=== PATIENT | female | born 1935 | race Caucasian/White ===

== ENCOUNTER 2019-12-12 06:19 | Inpatient (IN) | payer MEDICARE, OTHER ==
[2019-12-12] MEDS ORDERED: MORPHINE SULFATE 4 MG/ML SYRINGE IVP STA (06:31)
--- NOTE | 2019-12-12 06:38 | ED ---
Fall HPI - General Chief Complaint: Fall Stated Complaint: Fall Time Seen by Provider: 12/12/19 06:23 Source: patient Mode of arrival: EMS - History of Present Illness Initial Comments: Patient is an 84-year-old female presenting to emergency Department via EMS after a fall. Patient states she lost her footing and fell in her bathroom this morning. Patient states she hit her face on the sink and then landed mostly on her left side. Patient is complaining about left hip and left shoulder pain as well as some pain in her head where she hit the sink. She rates her pain a 7 /10. Patient denies loss of consciousness. She denies nausea, vomiting, dizziness, chest pain, shortness of breath. She denies any abdominal pain. She denies any previous surgeries of her hips or knees. She has no other complaints at this time. - Related Data Allergies Allergy/AdvReac Type Severity Reaction Status Date / Time No Known Allergies Allergy Verified 12/12/19 06:31 Review of Systems ROS Statement: Those systems with pertinent positive or pertinent negative responses have been documented in the HPI. ROS Other: All systems not noted in ROS Statement are negative. Past Medical History History of Any Multi-Drug Resistant Organisms: None Reported Past Psychological History: No Psychological Hx Reported Smoking Status: Never smoker Past Alcohol Use History: None Reported Past Drug Use History: None Reported General Exam - General Exam Comments Initial Comments: GENERAL: Well-appearing, well-nourished and in no acute distress. HEAD: Patient has bruising on the left temporal area as well as the left jaw. No s igns of basal skull fracture. EYES: Pupils equal round and reactive to light, extraocular movements intact, sclera anicteric, conjunctiva are normal. ENT: TMs normal, nares patent, oropharynx clear without exudates. Moist mucous membranes. NECK: Normal range of motion, supple without lymphadenopathy or JVD. No midline tenderness. LUNGS: Breath sounds clear to auscultation bilaterally and equal. No wheezes rales or rhonchi. HEART: Regular rate and rhythm without murmurs, rubs or gallops. ABDOMEN: Soft, nontender, normoactive bowel sounds. No guarding, no rebound. No masses appreciated. : Deferred EXTREMITIES: Pain with palpation of the left hip and left femur. Left lower extremity is shortened and externally rotated. Left lower extremity is neurovascular intact. Patient also has pain in the left shoulder as well as limited range of motion. Left upper extremity is neurovascular intact. No clubbing or cyanosis. NEUROLOGICAL: Cranial nerves II through XII grossly intact. Normal speech. PSYCH: Normal mood, normal affect. SKIN: Warm, Dry, normal turgor, no rashes or lesions noted. Course Vital Signs 12/12/19 12/12/19 06:23 08:03 Temperature 97.6 F Pulse Rate 63 84 Respiratory 18 18 Rate Blood Pressure 124/77 131/73 O2 Sat by Pulse 97 96 Oximetry Medical Decision Making - Medical Decision Making Patient is an 84-year-old female here after a fall this morning. Patient has bruising on the left temporal area, left lower extremity is shortened and externally rotated, and left shoulder is painful and limited range of motion. X-rays of the left femur reveal a left intertrochanteric fracture. AP pelvis also reveals a buckle fracture of the right superior pubic symphysis. Left shoulder x-ray is questionable for a impacted humerus fracture vs. shoulder contusion. CT of the brain, C-spine, facial bones revealed no acute abnormalities. Patient was placed in a sling. Patient did receive pain medicine and she is comfortable at this time. Patient will be admitted to orthopedics and medicine. Patient was accepted by Dr. Burkett and Dr. Gant. Case discussed with Dr. Albert. Lab work is pending at this time. - Lab Data Result diagrams: 12/12/19 08:00 12/12/19 08:00 Lab Results 12/12/19 12/12/19 12/12/19 Range/Units 08:00 08:00 08:00 WBC 24.4 H (3.8-10.6) k/uL RBC 4.57 (3.80-5.40) m/uL Hgb 13.7 (11.4-16.0) gm/dL Hct 42.9 (34.0-46.0) % MCV 94.0 (80.0-100.0) fL MCH 30.1 (25.0-35.0) pg MCHC 32.0 (31.0-37.0) g/dL RDW 14.2 (11.5-15.5) % Plt Count 140 L (150-450) k/uL PT 10.9 (9.0-12.0) sec INR 1.1 (<1.2) APTT 22.8 (22.0-30.0) sec Sodium 133 L (137-145) mmol/L Potassium 4.7 (3.5-5.1) mmol/L Chloride 103 (98-107) mmol/L Carbon Dioxide 24 (22-30) mmol/L Anion Gap 6 mmol/L BUN 15 (7-17) mg/dL Creatinine 0.76 (0.52-1.04) mg/dL Est GFR (CKD-EPI)AfAm 83 (>60 ml/min/1.73 sqM) Est GFR (CKD-EPI)NonAf 72 (>60 ml/min/1.73 sqM) Glucose 108 H (74-99) mg/dL Calcium 8.6 (8.4-10.2) mg/dL - EKG Data EKG Comments: EKG shows sinus rhythm with premature supraventricular complexes, no other acute changes. Ventricular rate 82, ME interval 146, QTC 453. Disposition Clinical Impression: Fall, Fracture, intertrochanteric, left femur, Contusion of face, Contusion of left shoulder, Closed fracture of symphysis pubis Disposition: ADMITTED IP TO THIS [facility] Condition: Good Is patient prescribed a controlled substance at d/c from ED?: No Referrals: None,Stated [REFERRING] - 1-2 days Decision Date: 12/12/19 Decision Time: 07:40
--- NOTE | 2019-12-12 07:07 | CT ---
EXAMINATION TYPE: CT brain mohsen sanchez DATE OF EXAM: 12/12/2019 COMPARISON: None HISTORY: Fall CT DLP: 988.3 mGycm Automated exposure control for dose reduction was used. There is cerebral cortical atrophy. There is no mass effect nor midline shift. There is no sign of in tracranial hemorrhage. There is hypodensity in the periventricular white matter. The calvarium is int act. Cervical vertebra have normal alignment. Posterior elements are intact. Facet joints are intact. The skull base is intact. There is mild cervical disc space narrowing. IMPRESSION: Cerebral atrophy. Chronic small vessel ischemia. No acute intracranial abnormality. Negative CT scan of the cervical spine. No fracture. There is multiple compression fractures of the upper thoracic vertebra up to 50% with thoracic kyphot ic deformity. Fractures are probably old.
--- NOTE | 2019-12-12 07:09 | CT ---
EXAMINATION TYPE: CT facial bones wo con DATE OF EXAM: 12/12/2019 COMPARISON: None HISTORY: Fall CT DLP: 988.3 mGycm Automated exposure control for dose reduction was used. Multiple axial sections were obtained from the bottom of the mandible to the top of the frontal sinus es without contrast. Exam limited slightly by motion. The mandibular ring is intact. Temporomandibula r joints appear intact. Zygomatic arches appear normal. Maxilla appears intact. The nasal bone is int act. There is no evidence of a blowout fracture. There is no evidence of retro-orbital mass. There is normal aeration of the paranasal sinuses. There is normal aeration of the temporal bones. IMPRESSION: Exam limited slightly by motion. No fracture seen.
--- NOTE | 2019-12-12 07:35 | XR ---
EXAMINATION TYPE: XR femur LT DATE OF EXAM: 12/12/2019 COMPARISON: None HISTORY: Fall, pain TECHNIQUE: 2 view right femur FINDINGS: There is an intertrochanteric fracture at the left hip. There is avulsion of the lesser tro chanter. There is some angulation of the fracture fragments. Knee joint space appears preserved. Femoral head articulates with the acetabulum. IMPRESSION: 1. Intertrochanteric fracture left hip
[2019-12-12] MEDS ORDERED: traMADol 50 MG TAB PO PRN (07:37)
[2019-12-12] MEDS ORDERED: NALOXONE 0.4 MG/ML 1 ML VIAL IV PRN (07:37)
[2019-12-12] MEDS ORDERED: ONDANSETRON 4 MG/2 ML VIAL IVP PRN (07:37)
[2019-12-12] MEDS ORDERED: ACETAMINOPHEN TAB 325 MG TAB PO PRN (07:37)
--- NOTE | 2019-12-12 07:59 | XR ---
EXAMINATION TYPE: XR shoulder complete LT DATE OF EXAM: 12/12/2019 COMPARISON: None HISTORY: Fall, pain TECHNIQUE: Three-view left shoulder FINDINGS: Humeral head articulate with the glenoid. The acromioclavicular junction appears within nor mal limits. Prior distal clavicular fracture may be present. Correlate with location of the patient's pain. There may be some calcium pyrophosphate deposition calcification present within the joint spac e. Free bodies could be considered. Osteoarthritic degenerative changes at the glenohumeral junction. IMPRESSION: 1. Moderately advanced degenerative changes left shoulder. 2. There may be an old fracture of the distal clavicle. Clinical correlation with location of the pat ient's pain is recommended.
--- NOTE | 2019-12-12 08:01 | XR ---
EXAMINATION TYPE: XR Hip LT and AP Pelvis DATE OF EXAM: 12/12/2019 COMPARISON: Left femur HISTORY: Fall, pain TECHNIQUE: 2 view left hip supplemented with an AP pelvis FINDINGS: There is an intertrochanteric fracture of the left hip. There is avulsion of the lesser tro chanter. Femoral head articulates with the acetabulum. There is a fracture of the right medial pubic symphysis. Right femoral head articulates with the ac etabulum. No additional fractures are identified IMPRESSION: 1. Intertrochanteric fracture left hip with avulsion of the lesser trochanter. 2. Buckle fracture of the right superior pubic symphysis.
--- NOTE | 2019-12-12 08:09 | XR ---
EXAMINATION TYPE: XR chest 1V DATE OF EXAM: 12/12/2019 COMPARISON: None INDICATION: Hip fracture, fall, pain TECHNIQUE: Single frontal view of the chest is obtained. FINDINGS: The heart size is normal. The pulmonary vasculature is normal. There appears to be some atelectasis at the right lung base. There is elevation of the right diaphragm. Degenerative changes are noted at the bilateral shoulders. No definite acute fracture of the distal left clavicle is identified. IMPRESSION: 1. Mild atelectasis right lung base and elevation of the right diaphragm
[2019-12-12 08:22] LABS: Calcium 8.6 mg/dL (8.4-10.2)
[2019-12-12 08:24] LABS: INR 1.1 (<1.2); Partial Thromboplastin Time 22.8 sec (22.0-30.0); Prothrombin Time 10.9 sec (9.0-12.0)
[2019-12-12 08:33] LABS: Potassium 4.7 mmol/L (3.5-5.1)
[2019-12-12 08:48] LABS: HCT 42.9 % (34.0-46.0); HGB 13.7 gm/dL (11.4-16.0); MCH 30.1 pg (25.0-35.0); Platelet Count 140 k/uL (150-450); RBC 4.57 m/uL (3.80-5.40); RDW 14.2 % (11.5-15.5); WBC 24.4 k/uL (3.8-10.6)
[2019-12-12 09:11] LABS: Band Neutrophils % 4 %; Eosinophils # (M) 0.49 k/uL (0-0.7); Lymphocytes # (M) 0.73 k/uL (1.0-4.8); Metamyelocytes # (M) 0.24 k/uL (0); Metamyelocytes % 1 %; Monocytes # (M) 3.66 k/uL (0-1.0); Neutrophils % (M) 77 %; Nucleated Red Blood Cells 0 /100 WBC (0-0); Total Cells Counted 200
[2019-12-12 09:12] LABS: Large Platelets Present
[2019-12-12] MEDS: SODIUM CHLORIDE 0.9% 1,000 ML IV SCH (09:47)
--- NOTE | 2019-12-12 11:13 | P.CONS ---
History of Present Illness - Reason for Consult Consult date: 12/12/19 Medical management - History of Present Illness This is an 84-year-old female patient of Dr. Bean with past medical history of generalized osteoarthritis, osteoporosis, anemia, chronic hypokalemia, hypothyroidism, frequent urinary tract infections, diverticulitis, dementia. Patient has been seen in the office on multiple occasions recently with general problems including weight loss. Patient refused [id number]. senior care placement was being worked on between [facility] or [facility]. The patient has a sister that lives in the apartment across the [place] from her and has been assisting her. Yesterday, patient had a fall after losing her balance, fell in the bathroom and hit her face on the sink and landed on her left side. She is complaining of left hip and left shoulder pain as well as head pain. Patient denies any loss of consciousness. No nausea, vomiting, dizziness, chest pain, shortness of breath. She denies any abdominal pain. She was afebrile and vital signs were stable, WBC 24.4, hemoglobin 13.7, platelets 140, sodium 133, potassium 4.7, chloride 103, CO2 24, BUN 15, creatinine 0.76, blood sugar 108. CAT scan of the brain, cervical spine, facial bones showed no acute abnorma lities. Left shoulder x-ray showed moderately advanced degenerative changes of the left shoulder. There may be an old fracture of the distal clavicle. Right hip and pelvis showed intertrochanteric fracture left hip with avulsion of the lesser trochanter. Buccal fracture of the right superior pubic symphysis. Patient was placed on a sling and admitted to the [facility] floor under orthopedics. Review of Systems Constitutional: Reports weight loss, Denies anorexia, Denies chills, Denies fatigue, Denies fever, Denies lethargy, Denies malaise, Denies poor appetite, Denies weakness Eyes: denies blurred vision, denies pain Ears, nose, mouth and throat: Denies dental pain, Denies dysphagia, Denies headache, Denies mouth pain, Denies nasal congestion, Denies nasal discharge, Denies sore throat, Denies vertigo Cardiovascular: Denies chest pain, Denies dyspnea on exertion, Denies edema, Denies irregular heart beat, Denies leg edema, Denies lightheadedness, Denies shortness of breath, Denies syncope Respiratory: Denies cough, Denies cough with sputum, Denies dyspnea, Denies excessive sputum, Denies hemoptysis, Denies home oxygen, Denies respiratory infections, Denies wheezing Gastrointestinal: Denies abdominal pain, Denies diarrhea, Denies nausea, Denies vomiting Genitourinary: Denies dysuria, Denies hematuria, Denies urgency, Denies urinary frequency Menstruation: Reports postmenopausal Musculoskeletal: Reports gait dysfunction, Reports muscle weakness, Denies frequent falls, Denies myalgias Integumentary: Denies pruritus, Denies rash, Denies wounds Neurological: Reports weakness, Denies change in mentation, Denies change in speech, Denies numbness, Denies seizures Psychiatric: Denies anxiety, Denies depression Endocrine: Denies fatigue, Denies weight change Past Medical History Past Medical History: No Reported History, Osteoarthritis (OA), Thyroid Disorder History of Any Multi-Drug Resistant Organisms: None Reported Past Surgical History: No Surgical Hx Reported Past Psychological History: No Psychological Hx Reported Smoking Status: Never smoker Past Alcohol Use History: None Reported Additional Past Alcohol Use History / Comment(s): Patient is a lifelong nonsmoker, no alcohol use, marijuana use, illicit drug use. Patient currently resides in a senior apartment. Patient's sister lives across the [place]. Past Drug Use History: None Reported - Past Family History Father Additional Family Medical History / Comment(s): Father at age 97 from old age but did have history of several types of cancer. Patient cannot recall. Mother Additional Family Medical History / Comment(s): Mother at age 88 from coronary artery disease. Patient has one sister. Patient does not have any brothers. Patient has 2 children that she has not seen since a divorce many years ago. Medications and Allergies Home Medications Medication Instructions Recorded Confirmed Type Ascorbic Acid [Vitamin C] 500 mg PO DAILY 12/12/19 12/12/19 History Cholecalciferol [Vitamin D3 (25 2,000 unit PO DAILY 12/12/19 12/12/19 History Mcg = 1000 Iu)] Mirtazapine [Remeron] 15 mg PO HS 12/12/19 12/12/19 History Potassium Chloride [Klor-Con 20] 20 meq PO DAILY 12/12/19 12/12/19 History Rivastigmine Tartrate 1.5 mg PO BID-W/MEALS 12/12/19 12/12/19 History [Rivastigmine] Allergies Allergy/AdvReac Type Severity Reaction Status Date / Time No Known Allergies Allergy Verified 12/12/19 10:01 Physical Exam Vitals: Vital Signs Temp Pulse Pulse Resp BP BP Pulse Ox 12/12/19 10:01 98.6 F 95 20 107/62 92 L 12/12/19 08:03 84 18 131/73 96 12/12/19 06:23 97.6 F 63 18 124/77 97 Intake and Output 12/11/19 12/12/19 12/12/19 22:59 06:59 14:59 Other: Weight 43.091 kg 43.091 kg Gen: This is an 84-year-old female. Patient is very cachectic appearing. HEENT: Head is atraumatic, normocephalic. Pupils equal, round. Sclerae is anicteric. NECK: Supple. No JVD. No lymphadenopathy. No thyromegaly. LUNGS: Clear to auscultation. No wheezes or rhonchi. No intercostal retractions. HEART: Regular rate and rhythm. No murmur. ABDOMEN: Soft. Bowel sounds are present. No masses. No tenderness. EXTREMITIES: No pedal edema. No calf tenderness. Left lower extremity is externally rotated and shortened. NEUROLOGICAL: Patient is awake, alert and oriented x3. Cranial nerves 2 through 12 are grossly intact. Results CBC & Chem 7: 12/13/19 10:57 12/13/19 10:57 Labs: Abnormal Lab Results - Last 24 Hours (Table) 12/12/19 12/12/19 Range/Units 08:00 08:00 WBC 24.4 H (3.8-10.6) k/uL Plt Count 140 L (150-450) k/uL Neutrophils # (Manual) 19.70 H (1.3-7.7) k/uL Lymphocytes # (Manual) 0.73 L (1.0-4.8) k/uL Monocytes # (Manual) 3.66 H (0-1.0) k/uL Metamyelocytes # (Man) 0.24 H (0) k/uL Sodium 133 L (137-145) mmol/L Glucose 108 H (74-99) mg/dL Assessment and Plan Plan: 1. Left intertrochanteric hip fracture with avulsion of the lesser trochanter. Patient has been admitted under the care of orthopedic surgeon. Patient is cleared medically for surgical intervention. Continue current pain management, incentive spirometry to reduce incidence of atelectasis and hospital-acquired pneumonia. 2. Right pubic symphysis fracture. Continue conservative management. 3. Leukocytosis most likely reactionary from the hip fracture. Obtain urinal ysis and urine culture 4. Weight loss and severe protein calorie malnutrition. Continue Remeron 50 mg at bedtime, protein supplementation. 5. 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 Continue rivastigmine 1.5 mg twice daily. 6. Hypokalemia. Continue potassium supplementation. 7. Generalized osteoarthritis and osteoporosis. 8. GI prophylaxis. Pepcid. 9. DVT prophylaxis. Per orthopedic. 10. COVID-19 testing is in process. Patient will be admitted to the hospital for a minimum of 2 night stay. Discharge plan: [facility] or [facility] for subacute rehab. Impression and plan of care have been directed as dictated by the signing physician. Zunilda Magana nurse practitioner acting as scribe for signing physician.
--- NOTE | 2019-12-12 11:29 | P.HPOR ---
History of Present Illness H&P Date: 12/12/19 Chief Complaint: left hip pain, left shoulder pain, and pubic bone pain Patient is a very pleasant 84-year-old female who is seen sitting at the bedside for further evaluation regards to her left hip pain, left shoulder pain, and pubic pain. Patient states her this morning she got up to go to the restroom. She states she is unsure what caused her fall but she fell hitting the left side of her head on the sink and falling on her left side. She resides with her sister. She states her sister was able to help get her brought to [facility] for further evaluation. Patient states she has difficulty with any range of motion of the left lower extremity. She has pain with movements of her left hip. She also complains of some pain over her pubic bone. She has difficulty with range of motion of the left shoulder and states her left shoulder feels sore. She does have some pain over the left proximal humerus. Her pain is significant at her left hip. She does have bruising over the left sabianism and over her left cheek. Patient had multiple imaging modalities taken in the emergency department which show evidence of left intertrochanteric hip fracture and possible left proximal humerus fracture. A sling was ordered for the left upper extremity in the emergency department. Patient is not currently complaining of any cervical pain, thoracic pain, or pain to her skull. She states overall she feels sore. She states she does not have any medical conditions that she is aware of. Nursing states patient has been seen by Dr. Charles in medicine today. Past Medical History Past Medical History: No Reported History, Osteoarthritis (OA), Thyroid Disorder History of Any Multi-Drug Resistant Organisms: None Reported Past Surgical History: No Surgical Hx Reported Past Psychological History: No Psychological Hx Reported Smoking Status: Never smoker Past Alcohol Use History: None Reported Additional Past Alcohol Use History / Comment(s): Patient is a lifelong nonsmoker, no alcohol use, marijuana use, illicit drug use. Patient currently resides in a senior apartment. Patient's sister lives [place] the [place]. Past Drug Use History: None Reported - Past Family History Father Additional Family Medical History / Comment(s): Father at age 97 from old age but did have history of several types of cancer. Patient cannot recall. Mother Additional Family Medical History / Comment(s): Mother at age 88 from coron melissa artery disease. Patient has one sister. Patient does not have any brothers. Patient has 2 children that she has not seen since a divorce many years ago. Medications and Allergies Home Medications Medication Instructions Recorded Confirmed Type Ascorbic Acid [Vitamin C] 500 mg PO DAILY 12/12/19 12/12/19 History Cholecalciferol [Vitamin D3 (25 2,000 unit PO DAILY 12/12/19 12/12/19 History Mcg = 1000 Iu)] Mirtazapine [Remeron] 15 mg PO HS 12/12/19 12/12/19 History Potassium Chloride [Klor-Con 20] 20 meq PO DAILY 12/12/19 12/12/19 History Rivastigmine Tartrate 1.5 mg PO BID-W/MEALS 12/12/19 12/12/19 History [Rivastigmine] Allergies Allergy/AdvReac Type Severity Reaction Status Date / Time No Known Allergies Allergy Verified 12/12/19 10:01 Physical Examination Physical exam: Patient is awake, alert, and oriented 3 Vital signs stable Adequate chest excursion with deep inspiration and expiration Left lower extremity is shortened and externally rotated Pain with palpation of the left hip Significant pain with internal and external rotation of the left hip Neurovascularly intact bilateral lower extremities Dorsiflexion, plantarflexion, and extensor hallucis longus positive sustained bilaterally Calves are soft and supple; No signs or symptoms of DVT; No calf pain Pain with palpation over the left proximal humerus Limited range of motion of the left shoulder Active range of motion with flexion and extension of the left elbow without difficulty Patient able to wiggle all fingers of the left hand without difficulty No evidence of significant bruising, erythema, or swelling over the left shoulder Contusions over the left sabianism and cheek Results Pertinent studies: X-rays of the left hip and pelvis taken on 12/12/2019: Left intertrochanteric hip fracture with avulsion of the lesser trochanter; buckle fracture of the right superior pubic symphysis X-rays the left shoulder taken on 12/12/2019: Moderately advanced degenerative changes of the left shoulder; may be evidence of an old fracture of the distal clavicle and possible proximal humerus fracture X-ray left femur taken on 12/12/2019: Left intertrochanteric hip fracture with avulsion of the lesser trochanter; some angulation of the fracture fragment; the joint space appears preserved CT of the head and cervical spine taken on 12/12/2019: Negative computed tomography scan of the cervical spine; no evidence of cervical fracture; cerebral atrophy, chronic small vessel ischemia; no acute intracranial abnormality; multiple upper thoracic compression fracture deformities with thoracic kyphotic deformity which these fractures are probably chronic CT of the face taken on 12/12/2019: Exam limited surgery by motion; no fracture seen - Labs Labs: Abnormal Lab Results - Last 24 Hours (Table) 12/12/19 12/12/19 Range/Units 08:00 08:00 WBC 24.4 H (3.8-10.6) k/uL Plt Count 140 L (150-450) k/uL Neutrophils # (Manual) 19.70 H (1.3-7.7) k/uL Lymphocytes # (Manual) 0.73 L (1.0-4.8) k/uL Monocytes # (Manual) 3.66 H (0-1.0) k/uL Metamyelocytes # (Man) 0.24 H (0) k/uL Sodium 133 L (137-145) mmol/L Glucose 108 H (74-99) mg/dL H & H 12/12/19 Range/Units 08:00 Hgb 13.7 (11.4-16.0) gm/dL Hct 42.9 (34.0-46.0) % Coagulation 12/12/19 Range/Units 08:00 INR 1.1 (<1.2) Result Diagrams: 12/12/19 08:00 12/12/19 08:00 Assessment and Plan Assessment: Assessment: Acute traumatic intertrochanteric hip fracture status post fall with the lesser trochanter avulsion fracture Left hip pain Left proximal humerus shoulder pain Right superior pubic symphysis buckle fracture Pubic bone pain Contusion over the left cheek and left sabianism (1) Left shoulder pain Current Visit: Yes Status: Acute Code(s): M25.512 - PAIN IN LEFT SHOULDER SNOMED Code(s): 59290094 (2) Degenerative arthritis of left shoulder region Current Visit: Yes Status: Acute Code(s): M19.012 - PRIMARY OSTEOARTHRITIS, LEFT SHOULDER SNOMED Code(s): 898256208215342 (3) Left hip pain Current Visit: Yes Status: Acute Code(s): M25.552 - PAIN IN LEFT HIP SNOMED Code(s): 26944283 (4) Closed fracture of symphysis pubis Current Visit: Yes Status: Acute Code(s): S32.599A - OTH FRACTURE OF UNSP PUBIS, INIT ENCNTR FOR CLOSED FRACTURE SNOMED Code(s): 816122623 (5) Contusion of face Current Visit: Yes Status: Acute Code(s): S00.83XA - CONTUSION OF OTHER PART OF HEAD, INITIAL ENCOUNTER SNOMED Code(s): 580119852 (6) Fall Current Visit: Yes Status: Acute Code(s): W19.XXXA - UNSPECIFIED FALL, INITIAL ENCOUNTER SNOMED Code(s): 4419699 (7) Fracture, intertrochanteric, left femur Current Visit: Yes Status: Acute Code(s): S72.142A - DISPLACED INTERTROCHANTERIC FRACTURE OF LEFT FEMUR, INIT SNOMED Code(s): 197677681 Plan: Plan: 1. Patient has been discussed in detail with Dr. Burkett. Reviewing of imaging does show evidence of a left intertrochanteric hip fracture. Patient has been unable to ambulate on the left lower extremity following her fall. She has pain most significant in her left hip. We discussed the significance of her fracture and that surgical intervention would provide her with the best opportunity have some improvement of her mobility and to increase her ambulation status. After further discussion with the patient, patient elected to proceed for surgical intervention at her left hip. I discussed these issues with the patient at length and I answered all of their questions to the best of my ability and the patient understands. I discussed the risk of surgical intervention and alternative treatment options. The risk of surgical intervention was explained to the patient in detail including but not limited to risk of bleeding, risk of infection, risk and need for further surgery, risk of decreased loss of motion of function, malunion, nonunion, hardware failure, nerve damage, paralysis, heart attack, , as well as the fact that surgery may not alleviate her symptoms. I answered all the patient's questions the best of my ability. The patient would like to proceed forward with surgical intervention and will sign informed consent. Surgery will be planned for tomorrow, 12/13/2019 to be performed by Dr. Burkett. Patient may eat throughout the day and become nothing by mouth status starting at midnight, 12/13/2019. Patient has been seen by medicine. Patient will need to be cleared by medicine prior to surgical intervention. 2. Patient is also exposing pain over the left proximal humerus and has had increased pain at the left proximal humerus after her fall. She does have decreased range of motion with the left shoulder. X-ray imaging was inconclusive in terms of whether there was evidence of a fracture of the left shoulder. At this time, we will plan to obtain a CT of the left shoulder for further evaluation. She has been provided with a sling for the left upper extremity. A sling was ordered in the emergency department but has not yet been delivered to the room. Once this sling is delivered, patient should use the sling for comfort support. She should avoid lifting activities with the left upper extremity. 3. Roland catheter initiation has been started. 4. Continue pain control medication as prescribed 5. Patient will continue recently examined by medicine and will need surgical clearance prior to scheduled surgery at her left hip tomorrow, 12/13/2019 Time with Patient: Greater than 30 (Including obtaining history, physical examination, reviewing of imaging, and dictation.)
[2019-12-12] MEDS: DONEPEZIL 5 MG TAB PO SCH (13:45)
--- NOTE | 2019-12-12 13:46 | CT ---
EXAMINATION TYPE: CT humerus LT wo con DATE OF EXAM: 12/12/2019 COMPARISON: None HISTORY: Left shoulder pain status post fall, R/O Fracture CT DLP: [address] of the left shoulder with reconstruction imaging. TECHNIQUE: Unenhanced CT of the left shoulder was performed with bone and soft tissue window settings submitted in the axial coronal and sagittal planes. At a separate workstation 3-D TR imaging was ob tained. FINDINGS: I do not see evidence for fracture or dislocation of the humerus. There is fracture of the distal left clavicle without significant displacement mild narrowing AC joint space. Severe glenohume ral joint space narrowing. Spur formation about the humeral head. No obvious rotator cuff abnormality seen on CT. MRI is much more sensitive and specific to rotator cuff pathology. No soft tissue mass es appreciated. Visualized portions of the right lung demonstrate apical scarring. Remote left-reilly ed rib fractures. IMPRESSION: 1. Nondisplaced distal left clavicular fracture. 2. Changes of osteoarthritis.
[2019-12-12 14:30] LABS: Appearance,Urine Clear (Clear); Bilirubin,Urine Negative (Negative); Blood,Urine Negative (Negative); Color,Urine Yellow; Glucose,Urine (UA) Negative (Negative); Ketones,Urine Negative (Negative); Leukocyte Esterase,Urine Negative (Negative); Nitrite,Urine Negative (Negative); Protein,Urine Negative (Negative); Specific Gravity,Urine 1.011 (1.001-1.035); Urobilinogen,Urine <2.0 mg/dL (<2.0)
[2019-12-12] MEDS: MIRTAZAPINE 15 MG TAB PO SCH (22:10)
--- NOTE | 2019-12-12 23:28 | CONS ---
CONSULTATION CHIEF COMPLAINT: Left hip fracture. HISTORY OF PRESENT ILLNESS: I was called to evaluate this lady for preop consult for ORIF of fracture of the left hip. There is nobody accompanying her to give any history. REVIEW OF SYSTEMS: Unobtainable. Past medical history, family history, and personal and social histories are unobtainable at this time. PHYSICAL EXAMINATION: Blood pressure is 112/70 with a pulse of 70, respirations of 12. She is afebrile. In general, she appeared to be slightly pale, frail and very dehydrated. Head, ears, eyes, nose, mouth, and throat were normal except for dry lips and mucous membranes. Neck veins are not distended. Carotids sounded normal. Breath sounds are heard on both sides. Cardiac exam demonstrated what sounded like sinus rhythm with no murmurs or extra sounds. Abdomen is flat, soft. Extremities demonstrated external rotation of the left leg. Pulses in the extremities were weak. Neurologically, she was awake, but not felt to be appropriate. IMPRESSION: 1. Fracture of the left hip. 2. Dehydration. PLAN: IV fluids, laboratory studies in preparation for surgical intervention. MMODL / IJN: [id number] /
[2019-12-13] MEDS: SODIUM CHLORIDE 0.9% 1,000 ML IV SCH ×2 (05:48→21:15)
[2019-12-13] MEDS: FAMOTIDINE 20 MG TAB PO SCH (06:47)
[2019-12-13] MEDS: POTASSIUM CHLORIDE ER 20 MEQ TAB.ER PO SCH (06:47)
[2019-12-13] MEDS: DONEPEZIL 5 MG TAB PO SCH (06:47)
[2019-12-13] MEDS ORDERED: LIDOCAINE 1% (10MG/ML) FOR IV START INTRADERMA PRN (09:54)
[2019-12-13] MEDS ORDERED: DEXAMETHASONE SOD PHOSPHATE 10 MG/ML 1 ML VIAL IV ONE (09:54)
[2019-12-13] MEDS ORDERED: HYDROmorphone 0.5 MG/0.5 ML SYRINGE IVP PRN ×4 (09:54→16:39)
[2019-12-13 09:55] VITALS: BMI 16.2
[2019-12-13 11:33] LABS: Basophils # (A) 0.1 k/uL (0-0.2); Basophils % (A) 1 %; Eosinophils # (A) 0.1 k/uL (0-0.7); Eosinophils % (A) 1 %; HCT 35.9 % (34.0-46.0); HGB 11.4 gm/dL (11.4-16.0); Hypochromasia Slight; Lymphocytes # (A) 1.1 k/uL (1.0-4.8); Lymphocytes % (A) 5 %; MCH 29.9 pg (25.0-35.0); MCHC 31.8 g/dL (31.0-37.0); MCV 94.2 fL (80.0-100.0); Monocytes # (A) 4.4 k/uL (0-1.0); Monocytes % (A) 22 %; Neutrophils # (A) 13.7 k/uL (1.3-7.7); Neutrophils % (A) 70 %; Platelet Count 155 k/uL (150-450); RBC 3.81 m/uL (3.80-5.40); RDW 14.4 % (11.5-15.5); WBC 19.7 k/uL (3.8-10.6)
[2019-12-13 11:48] LABS: Albumin 3.1 g/dL (3.5-5.0); C Reactive Protein 84.1 mg/L (<10.0); Calcium 8.4 mg/dL (8.4-10.2); Potassium 5.2 mmol/L (3.5-5.1); Total Bilirubin 0.5 mg/dL (0.2-1.3); Total Protein 5.8 g/dL (6.3-8.2)
--- NOTE | 2019-12-13 11:57 | P.PN ---
Subjective Progress Note Date: 12/13/19 This is an 84-year-old female patient of Dr. Bean with past medical history of generalized osteoarthritis, osteoporosis, anemia, chronic hypokalemia, hypothyroidism, frequent urinary tract infections, diverticulitis, dementia. Patient has been seen in the office on multiple occasions recently with general problems including weight loss. Patient refused [id number]. residential placement was being worked on between [facility] or [facility]. The patient has a sister that lives in the apartment across the [place] from her and has been assisting her. Yesterday, patient had a fall after losing her balance, fell in the bathroom and hit her face on the sink and landed on her left side. She is complaining of left hip and left shoulder pain as well as head pain. Patient denies any loss of consciousness. No nausea, vomiting, dizziness, chest pain, shortness of breath. She denies any abdominal pain. She was afebrile and vital signs were stable, WBC 24.4, hemoglobin 13.7, platelets 140, sodium 133, potassium 4.7, chloride 103, CO2 24, BUN 15, creatinine 0.76, blood sugar 108. CAT scan of the brain, cervical spine, facial bones showed no acute abnormalities. Left shoulder x-ray showed moderately advanced degenerative changes of the left shoulder. There may be an old fracture of the distal clavicle. Right hip and pelvis showed intertrochanteric fracture left hip with avulsion of the lesser trochanter. Buccal fracture of the right superior pubic symphysis. Patient was placed on a sling and admitted to the [facility] floor under orthopedics. 12/12: Received call this morning from patient's nurse the patient was positive for COVID-19. Consult added for Dr. Colmenares. Orthopedics has been notified. Patient denies any new complaints. Appears to be still slightly more weak today from yesterday. She has been afebrile, heart rate 98, blood pressure 131/70, pulse ox 95% on room air. D-dimer 1.48. Sodium 133, potassium 5.2, chloride 104, CO2 19, BUN 32, creatinine 1.4, blood sugar 112. LDH 678, CK 28, C- reactive protein and a 4.1. Patient's sister will be contacted after rounds regarding update on patient condition and the Covid 19 positive test result. Objective - Vital Signs Vital signs: Vital Signs Temp 97.8 F 12/13/19 01:00 Pulse 102 H 12/13/19 01:00 Resp 20 12/13/19 01:00 BP 134/70 12/13/19 01:00 Pulse Ox 90 L 12/13/19 01:00 Intake & Output 12/12/19 12/13/19 12/13/19 18:59 06:59 18:59 Intake Total 200 Output Total 250 Balance -250 200 Weight 43.091 kg Intake: Oral 200 Output: Urine 250 Other: Voiding Method Indwelling Catheter # Bowel Movements 1 - Exam Review of Systems Constitutional: Reports weight loss, Denies anorexia, Denies chills, Denies fatigue, Denies fever, Denies lethargy, Denies malaise, Denies poor appetite, Denies weakness Ears, nose, mouth and throat: Denies dental pain, Denies dysphagia, Denies headache, Denies mouth pain, Denies nasal congestion, Denies nasal discharge, Denies sore throat, Denies vertigo Cardiovascular: Denies chest pain, Denies dyspnea on exertion, Denies edema, Denies irregular heart beat, Denies leg edema, Denies lightheadedness, Denies shortness of breath, Denies syncope Respiratory: Denies cough, Denies cough with sputum, Denies dyspnea, Denies excessive sputum, Denies hemoptysis, Denies home oxygen, Denies respiratory infections, Denies wheezing Gastrointestinal: Denies abdominal pain, Denies diarrhea, Denies nausea, Denies vomiting Genitourinary: Denies dysuria, Denies hematuria, Denies urgency, Denies urinary frequency Menstruation: Reports postmenopausal Musculoskeletal: Reports gait dysfunction, Reports muscle weakness, Denies frequent falls, Denies myalgias Integumentary: Denies pruritus, Denies rash, Denies wounds Neurological: Reports weakness, Denies change in mentation, Denies change in speech, Denies numbness, Denies seizures Psychiatric: Denies anxiety, Denies depression Endocrine: Denies fatigue, Denies weight change Physical examination Gen: This is an 84-year-old female. Patient is very cachectic appearing. Patient is resting in bed and appears to be comfortable. HEENT: Head is atraumatic, normocephalic. Pupils equal, round. Sclerae is anicteric. NECK: Supple. No JVD. No lymphadenopathy. No thyromegaly. LUNGS: Clear to auscultation. No wheezes or rhonchi. No intercostal retractions. HEART: Regular rate and rhythm. No murmur. ABDOMEN: Soft. Bowel sounds are present. No masses. No tenderness. EXTREMITIES: No pedal edema. No calf tenderness. Left lower extremity is externally rotated and shortened. NEUROLOGICAL: Patient is awake, alert and oriented x3. Cranial nerves 2 through 12 are grossly intact. - Labs CBC & Chem 7: 12/12/19 08:00 12/13/19 10:57 Labs: Abnormal Lab Results - Last 24 Hours (Table) 12/12/19 12/12/19 Range/Units 08:00 08:00 WBC 24.4 H (3.8-10.6) k/uL Plt Count 140 L (150-450) k/uL Neutrophils # (Manual) 19.70 H (1.3-7.7) k/uL Lymphocytes # (Manual) 0.73 L (1.0-4.8) k/uL Monocytes # (Manual) 3.66 H (0-1.0) k/uL Metamyelocytes # (Man) 0.24 H (0) k/uL Sodium 133 L (137-145) mmol/L Glucose 108 H (74-99) mg/dL Assessment and Plan Plan: 1. Left intertrochanteric hip fracture with avulsion of the lesser trochanter. Patient has been admitted under the care of orthopedic surgeon. Patient is cleared medically for surgical intervention. Continue current pain management, incentive spirometry to reduce incidence of atelectasis and hospital-acquired pneumonia. 2. Right pubic symphysis fracture. Continue conservative management. 3. Leukocytosis most likely reactionary from the hip fracture. Obtain urinalysis and urine culture 4. Weight loss and severe protein calorie malnutrition. Continue Remeron 50 mg at bedtime, protein supplementation. 5. 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 Continue rivastigmine 1.5 mg twice daily. 6. Hypokalemia. Continue potassium supplementation. 7. Generalized osteoarthritis and osteoporosis. 8. GI prophylaxis. Pepcid. 9. DVT prophylaxis. Per orthopedic. 10. COVID-19 test is positive. Discharge plan: [facility] or [facility] for subacute rehab. Impression and plan of care have been directed as dictated by the signing physician. Zunilda Magana nurse practitioner acting as scribe for signing physician.
--- NOTE | 2019-12-13 12:58 | P.CNPUL ---
History of Present Illness Consult date: 12/13/19 Requesting physician: Jeovany Charles Reason for consult: other (Postoperative/ICU management) Chief complaint: Left hip pain status post fall History of present illness: This is a very pleasant 84-year-old female patient who follows with Dr. Charles as her primary care provider. She has a history of osteoarthritis, osteoporosis, hypothyroidism, frequent urinary tract infections, diverticulitis, anemia, dementia. She is quite frail and cachectic. She is a lifelong nonsmoker. She lives in an apartment by herself however her sister lives across this hallway. She presented to the emergency room yesterday yesterday after sustaining a fall in her bathroom hitting her face on the sink and landed on her left side. She did have left hip and shoulder pain. Computed tomography scan of the brain and C-spine revealed multiple compression fractures of the upper thoracic vertebrae up to 50% with thoracic kyphotic deformity. No cerebral atrophy. No acute intracranial abnormality. No cervical spine fracture. Face CT revealed no fracture. She has a nondisplaced distal left clavicular fracture. She was also found to have an intertrochanteric fracture of the left hip with avulsion of the lesser trochanter. There is a buckle fracture of the right superior pubic symphysis. The plan is for surgical repair today. We are consulted as the patient will be recovered in the intensive care unit based on her multiple comorbidities. She is seen today on the regular medical floor. She is quite frail and cachectic. A poor historian. White count 19.7. Hemoglobin 11.4. Sodium 133. Potassium 5.2. Bicarb 19. Creatinine 1.40. LDH 678. Creatinine kinase 28. C-reactive protein 84. D-dimer 1.48. Naqvi virus PCR detected. Chest x-ray revealed mild atelectatic changes in the right lung base with elevation of the right diaphragm. She is currently maintaining O2 saturations in the mid 90s on room air. She's afebrile. Hemodynamically stable. Review of Systems REVIEW OF SYSTEMS: CONSTITUTIONAL: Positive for significant weight loss. EYES: Denies change in vision. EARS, NOSE, MOUTH, THROAT: Denies headaches, denies sore throat. CARDIOVASCULAR: Denies chest pain, palpitations or syncopal episodes. RESPIRATORY: Denies shortness of breath, cough, congestion or hemoptysis. GASTROINTESTINAL: Denies change in appetite, denies abdominal pain GENITOURINARY: Denies hematuria, denies infections. MUSKULOSKELETAL: Positive for left hip pain, left shoulder pain INTEGUMENTARY: Denies rash, denies eczema. NEUROLOGICAL: Denies recent memory loss, no recent seizure activity. PSYCHIATRIC: Denies anxiety, denies depression. HEMATOLOGIC/LYMPHATIC: Denies anemia, denies enlarged lymph nodes. Past Medical History Past Medical History: No Reported History, Osteoarthritis (OA), Thyroid Disorder History of Any Multi-Drug Resistant Organisms: None Reported Past Surgical History: No Surgical Hx Reported Past Psychological History: No Psychological Hx Reported Smoking Status: Never smoker Past Alcohol Use History: None Reported Additional Past Alcohol Use History / Comment(s): Patient is a lifelong nonsmoker, no alcohol use, marijuana use, illicit drug use. Patient currently resides in a senior apartment. Patient's sister lives across the [place]. Past Drug Use History: None Reported - Past Family History Father Additional Family Medical History / Comment(s): Father at age 97 from old age but did have history of several types of cancer. Patient cannot recall. Mother Additional Family Medical History / Comment(s): Mother at age 88 from cor onary artery disease. Patient has one sister. Patient does not have any brothers. Patient has 2 children that she has not seen since a divorce many years ago. Medications and Allergies Home Medications Medication Instructions Recorded Confirmed Type Ascorbic Acid [Vitamin C] 500 mg PO DAILY 12/12/19 12/12/19 History Cholecalciferol [Vitamin D3 (25 2,000 unit PO DAILY 12/12/19 12/12/19 History Mcg = 1000 Iu)] Mirtazapine [Remeron] 15 mg PO HS 12/12/19 12/12/19 History Potassium Chloride [Klor-Con 20] 20 meq PO DAILY 12/12/19 12/12/19 History Rivastigmine Tartrate 1.5 mg PO BID-W/MEALS 12/12/19 12/12/19 History [Rivastigmine] Allergies Allergy/AdvReac Type Severity Reaction Status Date / Time No Known Allergies Allergy Verified 12/12/19 10:01 Physical Exam Vitals: Vital Signs Temp Pulse Resp BP BP Pulse Ox 12/13/19 11:37 97.3 F L 96 20 121/68 95 12/13/19 07:00 97.7 F 98 20 131/70 95 12/13/19 01:00 97.8 F 102 H 20 134/70 90 L 12/12/19 19:10 97.9 F 108 H 20 126/89 91 L 12/12/19 15:00 97.5 F L 111 H 16 110/71 93 L Intake and Output 12/12/19 12/13/19 12/13/19 22:59 06:59 14:59 Intake Total 200 Output Total 250 Balance -50 Intake: Oral 200 Output: Urine 250 Other: Voiding Method Indwelling Catheter Indwelling Catheter Indwelling Catheter # Bowel Movements 1 Weight 43.091 kg GENERAL EXAM: Awake, very frail 84-year-old female patient, on room air, fairly comfortable in no apparent distress. HEAD: Normocephalic. EYES: Normal reaction of pupils, equal size. NOSE: Clear with pink turbinates. THROAT: No erythema or exudates. NECK: No masses, no JVD. CHEST: No chest wall deformity. LUNGS: Equal air entry with crackles in the right base. CVS: S1 and S2 normal with no audible murmur, regular rhythm. ABDOMEN: No hepatosplenomegaly, normal bowel sounds, no guarding or rigidity. SPINE: Kyphoscoliosis SKIN: No rashes CENTRAL NERVOUS SYSTEM: No focal deficits, tone is normal in all 4 extremities. EXTREMITIES: There is external rotation of the left lower extremity. There is no peripheral edema. No clubbing, no cyanosis. Peripheral pulses are intact. Results - Laboratory Findings CBC and BMP: 12/13/19 10:57 12/13/19 10:57 PT/INR, D-dimer PT 10.9 sec (9.0-12.0) 12/12/19 08:00 INR 1.1 (<1.2) 12/12/19 08:00 D-Dimer 1.48 mg/L FEU (<0.60) H 12/13/19 10:57 Abnormal lab findings: Abnormal Labs 12/12/19 12/12/19 12/12/19 08:00 08:00 09:00 WBC 24.4 H Plt Count 140 L Neutrophils # Neutrophils # (Manual) 19.70 H Lymphocytes # (Manual) 0.73 L Monocytes # Monocytes # (Manual) 3.66 H Metamyelocytes # (Man) 0.24 H D-Dimer Sodium 133 L Potassium Carbon Dioxide BUN Creatinine Glucose 108 H Lactate Dehydrogenase Creatine Kinase C-Reactive Protein Total Protein Albumin Coronavirus (PCR) Detected H 12/13/19 12/13/19 12/13/19 10:57 10:57 10:57 WBC 19.7 H Plt Count Neutrophils # 13.7 H Neutrophils # (Manual) Lymphocytes # (Manual) Monocytes # 4.4 H Monocytes # (Manual) Metamyelocytes # (Man) D-Dimer 1.48 H Sodium 133 L Potassium 5.2 H Carbon Dioxide 19 L BUN 32 H Creatinine 1.40 H Glucose 112 H Lactate Dehydrogenase 678 H Creatine Kinase 28 L C-Reactive Protein 84.1 H Total Protein 5.8 L Albumin 3.1 L Coronavirus (PCR) - Diagnostic Findings Chest x-ray: image reviewed Assessment and Plan Assessment: 1 Acute intertrochanteric fracture of the left hip with avulsion of the lesser trochanter, buckle fracture of the right superior pubic symphysis, status post fall 2 Nondisplaced distal left clavicular fracture, status post fall 3 CoVID 19 positive 4 History of dementia 5 Protein calorie malnutrition/cachexia 6 History of osteoarthritis/osteoporosis 7 Poor overall functional performance based on the above-mentioned multiple comorbidities Plan: The patient was seen and evaluated by Dr. Yanez Chest x-ray, d-dimer and inflammatory markers reviewed Plan is for surgical repair of the left hip fracture today We'll initiate Lovenox in a.m. Continue Pepcid Monitor closely in the intensive care unit post surgery We will continue to follow and make further recommendations based on her clinical status I, the cosigning physician, performed a history & physical examination of the patient. Lungs sounds with crackles in the right base. Maintaining good O2 saturations in the 90s on room air. I discussed the assessment and plan of care with my nurse practitioner, Itzel Olivas. I attest to the above consultation as dictated by her. Time with Patient: Greater than 30
[2019-12-13] MEDS: MORPHINE SULFATE 4 MG/ML SYRINGE IV PRN (13:15)
[2019-12-13] MEDS ORDERED: fentaNYL (PF) 50 MCG/ML 2 ML AMP ONE (15:05)
[2019-12-13] MEDS ORDERED: LACTATED RINGERS 1,000 ML IV ONE (15:05)
[2019-12-13] MEDS ORDERED: KETAMINE 10 MG/ML 20 ML VIAL ONE (15:05)
[2019-12-13] MEDS ORDERED: MIDAZOLAM 2 MG/2 ML VIAL ONE (15:05)
--- NOTE | 2019-12-13 16:09 | P.OP ---
Date of Procedure: 12/13/19 Procedure(s) Performed: PREOPERATIVE DIAGNOSIS: Left hip intertrochanteric fracture with severe oste oporosis (age related) POSTOPERATIVE DIAGNOSIS: Left hip intertrochanteric fracture with severe osteoporosis (age related) OPERATION: 1. Left hip intertrochanteric fracture closed reduction and int ramedullary nailing using Synthes IT nail. 2. Biopsy of femoral reamings (permanent sections) COUNTRY PRINTER APPRENTICE: Conrad Weinstein PA-C (Assistance with: Patient positioning, retraction, exposure, hemostasis, fixation, irrigation, closure, dressing) ANESTHESIA: Spinal ESTIMATED BLOOD LOSS: 50 mL. COMPLICATIONS: None OPERATIVE FINDINGS: See dictation INDICATIONS: Mrs. Hayes is an 84-year-old female with a history of left intertrochanteric fracture. She is covid 19 positive, but has no respiratory symptoms. The patient presents to the operating room today for closed reduction and intramedullary nailing. I discussed the risks of surgery in detail as being inclusive of but not limited to: Bleeding, infection, scarring, discomfort, blood vessel and/or nerve damage, need for further surgery, mal union, nonunion, gait disturbance including persistent or permanent limp, limb length inequality, arthritis, hardware failure, blood clot, pulmonary embolism, , and other risks. The consent form has been signed. PROCEDURE: After appropriate consent was obtained, the patient was taken to the operating room and placed in supine position. Spinal anesthetic was administered and after confirmation of adequate anesthesia, the patient was carefully placed in the supine position on the operating room table in the fracture table. The patient was placed up against a well-padded peroneal post. Care was taken to make sure about that all pressure points were adequately padded. The affected leg was placed in boot traction and the unaffected leg was placed in a well leg mercedes. Using gentle longitudinal distraction as well as adduction and internal rotation, the fracture was reduced as assessed by AP and lateral C-arm imaging. Once a satisfactory reduction had been obtained, the thigh was prepped and draped in the usual aseptic fashion using ChloraPrep. Ioban drape was used for the case and the patient received intravenous antibiotics prior to incision. Timeout was called, confirming patient identity, side, procedure, and administration of antibiotics. The incision was then created with a #10 blade just proximal to the greater trochanter laterally. It was carried down through skin into the subcutaneous tissues and through fascia. Hemostasis was obtained using electrocautery. The tip of the greater trochanter was palpated and a guide pin was placed at the tip and directed into the femoral shaft as assessed with C-arm imaging. Once optimal pin position had been obtained, a 17 mm reamer was used over the guide pin to create a path for the IT nail. Femoral reamings were sent for pathological analysis. IT nail selected was assembled to the insertion jig on the back table and bushings were checked for accuracy. The nail was then inserted using gentle mallet taps until it was fully deployed. The amount of rotation of the implant was assessed based on the amount of anteversion of the femoral neck. This was rotated to match the patient's femoral neck anteversion and the helical blade guide was placed through the insertion jig and through an incision on the lateral side of the thigh more distal than the first. Once this guide was placed against the lateral cortex of the femur, a guide pin was drilled into the central region of the femoral head and neck as based on AP and lateral C-arm imaging. Once optimal pin position had been obtained, the guidewire was measured and appropriately sized helical blade was selected. The path for the helical blade was prepared using a tapered reamer. The helical blade was then inserted using gentle mallet taps along the guidewire until it was fully deployed. There was no displacement of the fracture during this step. The anti-rotation screw was locked down and the insertion apparatus for the helical blade was removed. The guide pin was then removed. Traction was then removed from the leg and the distal interlock was placed through the jig using standard technique. Finally, the insertion jig for the nail was removed and final C-arm images were taken and saved in both AP and lateral planes. The final x-rays showed satisfactory positioning of the implant and good reduction of the fracture. The top of the nail was plugged with a small quantity of bone wax and the incisions were then thoroughly irrigated with normal saline. Final hemostasis was obtained using electrocautery and closure of the fascia was performed using 0-Vicryl suture. 2-0 Vicryl suture was used in the subcutaneous tissues and jd were used for the skin. Sterile dressing was then applied and the patient was carefully removed from the fracture table frame and placed onto the stretcher. The patient tolerated the procedure well. There were no complications and 50 of blood loss. The patient was then subsequently transferred to recovery room in stable condition. Sponge and needle counts were correct.
--- NOTE | 2019-12-13 16:24 | FL ---
Fluoroscopy INDICATION: Pain FINDINGS: Fluoroscopy time: 52 seconds. Images obtained: 2. IMPRESSIONS: 1. Documentation of fluoroscopy.
[2019-12-13] MEDS ORDERED: HYDROcodone/APAP 5-325MG 1 EACH TAB PO PRN (16:39)
[2019-12-13] MEDS ORDERED: ONDANSETRON 4 MG/2 ML VIAL IVP PRN (16:39)
[2019-12-13] MEDS ORDERED: hydrOXYzine PAMOATE 25 MG CAP PO PRN (16:39)
[2019-12-13] MEDS ORDERED: MAGNESIUM HYDROXIDE 2,400 MG/10 ML CUP PO PRN (16:39)
--- NOTE | 2019-12-13 16:39 | P.PN ---
Progress Note - Text Progress Note Date: 12/13/19 Orthopedics: History of present illness: Patient is a very pleasant 84-year-old female who is seen sitting at the bedside for follow-up evaluation regards to her left hip pain, left shoulder pain, and pubic pain. She was seen and examined yesterday after sustaining a fall which resulted in a left intertrochanteric hip fracture. She was experiencing left proximal humerus pain at that time as well. CT imaging of the left humerus did not show evidence of fracture or dislocation of the left humerus. The imaging did show evidence of a left distal clavicle fracture that appears chronic in nature. CT imaging also showed evidence of remote left-sided rib fractures. Patient is not currently complaining of any pain at her left ribs. She is currently scheduled for surgical intervention today with left hip intramedullary nail fixation for left intertrochanteric hip fracture to be performed by Dr. Burkett. Patient has been cleared for surgery by medicine. She continues to be non-ambulatory and on bedrest. She continues to have difficulty with any range of motion of the left lower extremity. She has pain with movements of her left hip. She also complains of some pain over her pubic bone. She has difficulty with range of motion of the left shoulder and states her left shoulder feels sore. She does have some pain over the left proximal humerus. Her pain is significant at her left hip. She does have bruising over the left rastafarian and over her left cheek that is slightly worse today as compared yesterday. A sling was ordered for the left upper extremity in the emergency department. She is not currently using the sling. Patient is not currently complaining of any cervical pain, thoracic pain, or pain to her skull. She states overall she feels sore. She states she does not have any medical conditions that she is a rendon of. Patient states she is ready to proceed for surgical intervention. We have been contacted by nursing as well as states the patient has tested positive for Covid-19. Physical exam: Patient is awake, alert, and oriented 3 Vital signs stable Adequate chest excursion with deep inspiration and expiration Left lower extremity is shortened and externally rotated Pain with palpation of the left hip Significant pain with internal and external rotation of the left hip Neurovascularly intact bilateral lower extremities Dorsiflexion, plantarflexion, and extensor hallucis longus positive sustained bilaterally Calves are soft and supple; No signs or symptoms of DVT; No calf pain Pain with palpation over the left proximal humerus Limited range of motion of the left shoulder Active range of motion with flexion and extension of the left elbow without difficulty Patient able to wiggle all fingers of the left hand without difficulty No evidence of significant bruising, erythema, or swelling over the left shoulder Contusions over the left rastafarian and cheek Pertinent studies: CT of the left shoulder taken on 12/12/2019: Nondisplaced distal left clavicle fracture which appears chronic in nature; severe glenohumeral osteoarthritis; no evidence of fracture or dislocation of the humerus; no evidence of soft tissue masses appreciated; remote left-sided rib fractures X-rays of the left hip and pelvis taken on 12/12/2019: Left intertrochanteric hip fracture with avulsion of the lesser trochanter; buckle fracture of the right superior pubic symphysis X-rays the left shoulder taken on 12/12/2019: Moderately advanced degenerative changes of the left shoulder; may be evidence of an old fracture of the distal clavicle and possible proximal humerus fracture X-ray left femur taken on 12/12/2019: Left intertrochanteric hip fracture with avulsion of the lesser trochanter; some angulation of the fracture fragment; the joint space appears preserved CT of the head and cervical spine taken on 12/12/2019: Negative computed t omography scan of the cervical spine; no evidence of cervical fracture; cerebral atrophy, chronic small vessel ischemia; no acute intracranial abnormality; multiple upper thoracic compression fracture deformities with thoracic kyphotic deformity which these fractures are probably chronic CT of the face taken on 12/12/2019: Exam limited surgery by motion; no fracture seen Assessment: Acute traumatic intertrochanteric hip fracture status post fall with the lesser trochanter avulsion fracture Left hip pain Left proximal humerus shoulder pain and mild clavicle pain Chronic left distal clavicle fracture Osteoarthritis left shoulder Right superior pubic symphysis buckle fracture Pubic bone pain Contusion over the left cheek and left rastafarian Plan: 1. Patient has been cleared for surgical intervention at her left hip. Proceed with surgery as scheduled. Patient has been discussed in detail with Dr. Burkett. Reviewing of imaging does show evidence of a left intertrochanteric hip fracture. Patient has been unable to ambulate on the left lower extremity following her fall. She has pain most significant in her left hip. We discussed the significance of her fracture and that surgical intervention would provide her with the best opportunity have some improvement of her mobility and to increase her ambulation status. After further discussion with the patient, patient elected to proceed for surgical intervention at her left hip. I discussed these issues with the patient at length and I answered all of their questions to the best of my ability and the patient understands. I discussed the risk of surgical intervention and alternative treatment options. The risk of surgical intervention was explained to the patient in detail including but not limited to risk of bleeding, risk of infection, risk and need for further surgery, risk of decreased loss of motion of function, malunion, nonunion, hardware failure, nerve damage, paralysis, heart attack, , as well as the fact that surgery may not alleviate her symptoms. I answered all the patient's questions the best of my ability. The patient would like to proceed forward with surgical intervention and will sign informed consent. Surgery will be planned for today, 12/13/2019 to be performed by Dr. Burkett. Patient will continue to be nothing by mouth status in anticipation for surgical intervention. 2. Patient will continue with conservative treatment for left shoulder. He does have evidence of a chronic left distal clavicle fracture. She continues to have some pain at her left proximal humerus with some bruising. Mild pain at the distal clavicle with no evidence of bruising or deformity. She does not have evidence of a proximal humerus fracture. She does have evidence of severe osteoarthritis of the left shoulder. At this time we are not planning for any acute treatment in regards to her left shoulder. She was previously prescribed a sling. She may use his sling for comfort and support as needed for her left shoulder. She should avoid lifting activities with the left upper extremity. 3. Roland catheter to remain intact until patient is able to increase mobilization 4. Continue pain control medication as prescribed 5. Patient is Covid 19 positive. She will most likely plan to be transferred to the ICU following surgical intervention. We will plan for admits that is to be transferred to medicine.
[2019-12-13 17:00] LABS: Glucose,Whole Blood 89 mg/dL (75-99)
[2019-12-13] MEDS: LACTATED RINGERS 1,000 ML IV SCH (18:30)
[2019-12-13 18:59] LABS: Basophils # (A) 0.1 k/uL (0-0.2); Basophils % (A) 0 %; Eosinophils # (A) 0.1 k/uL (0-0.7); Eosinophils % (A) 0 %; HCT 35.3 % (34.0-46.0); HGB 11.2 gm/dL (11.4-16.0); Hypochromasia Marked; Lymphocytes # (A) 0.8 k/uL (1.0-4.8); Lymphocytes % (A) 3 %; MCH 30.9 pg (25.0-35.0); MCHC 31.7 g/dL (31.0-37.0); MCV 97.4 fL (80.0-100.0); Mean Platelet Volume 11.7; Monocytes % (A) 18 %; Neutrophils # (A) 21.5 k/uL (1.3-7.7); Neutrophils % (A) 77 %; Platelet Count 168 k/uL (150-450); RBC 3.63 m/uL (3.80-5.40); RDW 14.6 % (11.5-15.5); WBC 27.8 k/uL (3.8-10.6)
[2019-12-13 20:08] LABS: Ferritin 325.6 ng/mL (10.0-291.0)
[2019-12-13] MEDS: SENNOSIDES-DOCUSATE SODIUM 1 EACH TAB PO SCH (21:13)
[2019-12-13] MEDS: MIRTAZAPINE 15 MG TAB PO SCH (21:15)
[2019-12-13] MEDS: ASPIRIN 325 MG TAB PO SCH (21:15)
[2019-12-14 05:29] LABS: Albumin 2.9 g/dL (3.5-5.0); C Reactive Protein 71.2 mg/L (<10.0); Calcium 8.2 mg/dL (8.4-10.2); Potassium 5.4 mmol/L (3.5-5.1); Total Bilirubin 0.4 mg/dL (0.2-1.3); Total Protein 5.5 g/dL (6.3-8.2)
[2019-12-14 07:02] LABS: Basophils # (A) 0.1 k/uL (0-0.2); Basophils % (A) 0 %; Eosinophils # (A) 0.1 k/uL (0-0.7); Eosinophils % (A) 1 %; HCT 33.5 % (34.0-46.0); HGB 10.5 gm/dL (11.4-16.0); Hypochromasia Slight; Lymphocytes % (A) 4 %; MCH 29.6 pg (25.0-35.0); MCHC 31.3 g/dL (31.0-37.0); MCV 94.5 fL (80.0-100.0); Mean Platelet Volume 11.4; Monocytes # (A) 6.3 k/uL (0-1.0); Monocytes % (A) 25 %; Neutrophils # (A) 17.1 k/uL (1.3-7.7); Neutrophils % (A) 69 %; Platelet Count 129 k/uL (150-450); RBC 3.54 m/uL (3.80-5.40); RDW 14.5 % (11.5-15.5); WBC 24.9 k/uL (3.8-10.6)
--- NOTE | 2019-12-14 07:29 | XR ---
EXAMINATION TYPE: XR chest 1V portable DATE OF EXAM: 12/14/2019 COMPARISON: Prior chest x-ray 12/12/2019 HISTORY: Abnormal chest x-ray, hip fracture and repair TECHNIQUE: Single frontal view of the chest is obtained. FINDINGS: There is persistent elevation of right hemidiaphragm, patient is rotated. Bone mineralizat ion is reduced. There are overlying cardiac leads. Cardiac mediastinal silhouette is likely stable. S uspect some improvement in aeration at the right lung base. No pneumothorax. No evident effusion. Rig ht-sided rib deformities likely represent old healed fractures. IMPRESSION: Improved aeration.
[2019-12-14 07:54] LABS: Poikilocytosis (M) Present
[2019-12-14] MEDS: ASPIRIN 325 MG TAB PO SCH ×2 (08:04→20:19)
[2019-12-14] MEDS: FAMOTIDINE 20 MG TAB PO SCH (08:04)
[2019-12-14] MEDS: DONEPEZIL 5 MG TAB PO SCH (08:04)
[2019-12-14] MEDS: ENOXAPARIN 30 MG/0.3 ML SYRINGE SQ SCH (08:04)
[2019-12-14] MEDS: LACTATED RINGERS 1,000 ML IV SCH (10:12)
[2019-12-14] MEDS: SODIUM CHLORIDE 0.9% 1,000 ML IV SCH ×2 (10:13→20:19)
[2019-12-14] MEDS: POTASSIUM CHLORIDE ER 20 MEQ TAB.ER PO SCH (10:40)
[2019-12-14] MEDS: HYDROcodone/APAP 5-325MG 1 EACH TAB PO PRN (11:48)
--- NOTE | 2019-12-14 13:02 | P.PN ---
Subjective Progress Note Date: 12/14/19 Principal diagnosis: Left hip fracture This is a very pleasant 84-year-old female patient who follows with Dr. Charles as her primary care provider. She has a history of osteoarthritis, osteoporosis, hypothyroidism, frequent urinary tract infections, diverticulitis, anemia, demen tia. She is quite frail and cachectic. She is a lifelong nonsmoker. She lives in an apartment by herself however her sister lives across this hallway. She presented to the emergency room yesterday yesterday after sustaining a fall in her bathroom hitting her face on the sink and landed on her left side. She did have left hip and shoulder pain. Computed tomography scan of the brain and C-spine revealed multiple compression fractures of the upper thoracic vertebrae up to 50% with thoracic kyphotic deformity. No cerebral atrophy. No acute intracranial abnormality. No cervical spine fracture. Face CT revealed no fracture. She has a nondisplaced distal left clavicular fracture. She was also found to have an intertrochanteric fracture of the left hip with avulsion of the lesser trochanter. There is a buckle fracture of the right superior pubic symphysis. The plan is for surgical repair today. We are consulted as the patient will be recovered in the intensive care unit based on her multiple comorbidities. She is seen today on the regular medical floor. She is quite frail and cachectic. A poor historian. White count 19.7. Hemoglobin 11.4. Sodium 133. Potassium 5.2. Bicarb 19. Creatinine 1.40. LDH 678. Creatinine kinase 28. C-reactive protein 84. D-dimer 1.48. Naqvi virus PCR detected. Chest x-ray revealed mild atelectatic changes in the right lung base with elevation of the right diaphragm. She is currently maintaining O2 saturations in the mid 90s on room air. She's afebrile. Hemodynamically stable. Patient was reevaluated today on 12/14/19. Patient is status post left hip intratrochanteric fracture closed reduction and intramedullary nailing. She is postoperative day #1. Patient is in the ICU, however she is doing great. She is on 2 L nasal cannula, in no form of respiratory distress. Her chest x-ray remains clear. Patient tested positive for covid 19 PCR. However clinically the patient is doing great, and asymptomatic. WBC count today is 24.9 hemoglobin is 10.5 electrolytes showed slightly low bicarb of 16, renal functioning is a bit worse with a BUN of 39 creatinine 1.45, C-reactive protein is 71 LDH is 724. Objective - Vital Signs Vital signs: Vital Signs Temp 96.8 F L 12/14/19 08:00 Pulse 92 12/14/19 12:00 Resp 16 12/14/19 12:00 BP 127/75 12/14/19 12:00 Pulse Ox 95 12/14/19 12:00 Intake & Output 12/13/19 12/14/19 12/14/19 18:59 06:59 18:59 Intake Total 520 1140 290 Output Total 200 670 195 Balance 320 470 95 Weight 43.091 kg 44.9 kg Intake: IV 520 840 290 Sodium Chloride 0.9% 1, 120 840 240 000 ml @ 60 mls/hr IV . [id number] [facility] Rx#:[id number] ceFAZolin 1 gm In Sodium 50 Chloride 0.9% 50 ml @ 100 mls/hr IVPB Q8HR [facility] Rx# :[id number] Tube Feeding 300 Output: Urine 150 670 195 Estimated Blood Loss 50 Other: Voiding Method Indwelling Catheter Indwelling Catheter Indwelling Catheter - Exam GENERAL EXAM: Awake, very frail 84-year-old female patient, on 2 L nasal cannula, in no distress HEAD: Normocephalic. EYES: Normal reaction of pupils, equal size. NOSE: Clear with pink turbinates. THROAT: No erythema or exudates. NECK: No masses, no JVD. CHEST: No chest wall deformity. LUNGS: Equal air entry with crackles in the right base. CVS: S1 and S2 normal with no audible murmur, regular rhythm. ABDOMEN: No hepatosplenomegaly, normal bowel sounds, no guarding or rigidity. SPINE: Kyphoscoliosis SKIN: No rashes CENTRAL NERVOUS SYSTEM: No focal deficits, tone is normal in all 4 extremities. EXTREMITIES: No clubbing edema or cyanosis - Labs CBC & Chem 7: 12/14/19 05:57 12/14/19 04:59 Labs: Abnormal Lab Results - Last 24 Hours (Table) 12/13/19 12/13/19 12/14/19 Range/Units 10:57 18:04 04:59 WBC 27.8 H (3.8-10.6) k/uL RBC 3.63 L (3.80-5.40) m/uL Hgb 11.2 L (11.4-16.0) gm/dL Hct (34.0-46.0) % Plt Count (150-450) k/uL Neutrophils # 21.5 H (1.3-7.7) k/uL Lymphocytes # 0.8 L (1.0-4.8) k/uL Monocytes # 5.0 H (0-1.0) k/uL Sodium 134 L (137-145) mmol/L Potassium 5.4 H (3.5-5.1) mmol/L Carbon Dioxide 16 L (22-30) mmol/L BUN 39 H (7-17) mg/dL Creatinine 1.45 H (0.52-1.04) mg/dL Calcium 8.2 L (8.4-10.2) mg/dL Ferritin 325.6 H (10.0-291.0) ng/mL Lactate Dehydrogenase 724 H (313-618) U/L C-Reactive Protein 71.2 H (<10.0) mg/L Total Protein 5.5 L (6.3-8.2) g/dL Albumin 2.9 L (3.5-5.0) g/dL 12/14/19 Range/Units 05:57 WBC 24.9 H (3.8-10.6) k/uL RBC 3.54 L (3.80-5.40) m/uL Hgb 10.5 L (11.4-16.0) gm/dL Hct 33.5 L (34.0-46.0) % Plt Count 129 L (150-450) k/uL Neutrophils # 17.1 H (1.3-7.7) k/uL Lymphocytes # (1.0-4.8) k/uL Monocytes # 6.3 H (0-1.0) k/uL Sodium (137-145) mmol/L Potassium (3.5-5.1) mmol/L Carbon Dioxide (22-30) mmol/L BUN (7-17) mg/dL Creatinine (0.52-1.04) mg/dL Calcium (8.4-10.2) mg/dL Ferritin (10.0-291.0) ng/mL Lactate Dehydrogenase (313-618) U/L C-Reactive Protein (<10.0) mg/L Total Protein (6.3-8.2) g/dL Albumin (3.5-5.0) g/dL Assessment and Plan Assessment: 1 Acute intertrochanteric fracture of the left hip with avulsion of the lesser trochanter, buckle fracture of the right superior pubic symphysis, status post fall, status post surgery and she is postoperative day #1. 2 Nondisplaced distal left clavicular fracture, status post fall 3 CoVID 19 positive, patient has no active pulmonary symptoms and her chest x- ray is reassuring. 4 History of dementia 5 Protein calorie malnutrition/cachexia 6 History of osteoarthritis/osteoporosis 7 Poor overall functional performance based on the above-mentioned multiple comorbidities Recommendation: Continue present supportive care measures. Continue to monitor inflammatory markers. Incentive spirometry. Continue GI and DVT prophylaxis. Transfer patient out of the ICU to a regular medical floor. We'll continue to follow. Cautious hydration to continue. Time with Patient: Less than 30
--- NOTE | 2019-12-14 13:38 | P.PN ---
Subjective Progress Note Date: 12/14/19 Principal diagnosis: Left intertrochanteric hip fracture, left nondisplaced distal left clavicular fracture, COVID 19 positive with no pulmonary symptoms, dementia, anemia, electrolyte imbalance or leukocytosis. This is an 84-year-old female patient of with past medical history of generalized osteoarthritis, osteoporosis, anemia, chronic hypokalemia, hypothyroidism, frequent urinary tract infections, diverticulitis, dementia. Patient has been seen in the office on multiple occasions recently with general problems including weight loss. Patient refused [id number]. jail placement was being worked on between [facility] or [facility]. The patient has a sister that lives in the apartment across the [place] from her and has been assisting her. Yesterday, patient had a fall after losing her balance, fell in the bathroom and hit her face on the sink and landed on her left side. She is complaining of left hip and left shoulder pain as well as head pain. Patient denies any loss of consciousness. No nausea, vomiting, dizziness, chest pain, shortness of breath. She denies any abdominal pain. She was afebrile and vital signs were stable, WBC 24.4, hemoglobin 13.7, platelets 140, sodium 133, potassium 4.7, chloride 103, CO2 24, BUN 15, creatinine 0.76, blood sugar 108. CAT scan of the brain, cervical spine, facial bones showed no acute abnormalities. Left shoulder x-ray showed moderately advanced degenerative changes of the left shoulder. There may be an old fracture of the distal clavicle. Right hip and pelvis showed intertrochanteric fracture left hip with avulsion of the lesser trochanter. Buccal fracture of the right superior pubic symphysis. Patient was placed on a sling and admitted to the [facility] floor under orthopedics. 12/12: Received call this morning from patient's nurse the patient was positive for COVID-19. Consult added for Dr. Colmenares. Orthopedics has been notified. Patient denies any new complaints. Appears to be still slightly more weak today from yesterday. She has been afebrile, heart rate 98, blood pressure 131/70, pulse ox 95% on room air. D-dimer 1.48. Sodium 133, potassium 5.2, chloride 104, CO2 19, BUN 32, creatinine 1.4, blood sugar 112. LDH 678, CK 28, C- reactive protein and a 4.1. Patient's sister will be contacted after rounds regarding update on patient condition and the Covid 19 positive test result. 12/13: Patient had nailing of the hip fracture a doing well with it so far, left clavicular fracture she had sling at this point conservative management no surgical intervention is required. Patient Covid 19 is positive but she is not symptomatic at this point she is on conservative management and supportive care no fever chills no cough no finding on x-ray. The biggest dilemma will be how to send patient from the hospital to the shelter rehab with Covid positive she'll need to have the test repeated and need to be negative before able to move to the shelter rehab. Objective - Vital Signs Vital signs: Vital Signs Temp 96.8 F L 12/14/19 08:00 Pulse 92 12/14/19 12:00 Resp 16 12/14/19 12:00 BP 127/75 12/14/19 12:00 Pulse Ox 95 12/14/19 12:00 Intake & Output 12/13/19 12/14/19 12/14/19 18:59 06:59 18:59 Intake Total 520 1140 290 Output Total 200 670 195 Balance 320 470 95 Weight 43.091 kg 44.9 kg Intake: IV 520 840 290 Sodium Chloride 0.9% 1, 120 840 240 000 ml @ 60 mls/hr IV . [id number] [facility] Rx#:[id number] ceFAZolin 1 gm In Sodium 50 Chloride 0.9% 50 ml @ 100 mls/hr IVPB Q8HR [facility] Rx# :[id number] Tube Feeding 300 Output: Urine 150 670 195 Estimated Blood Loss 50 Other: Voiding Method Indwelling Catheter Indwelling Catheter Indwelling Catheter - Exam Review of Systems Constitutional: Reports weight loss, Denies anorexia, Denies chills, Denies fatigue, Denies fever, Denies lethargy, Denies malaise, Denies poor appetite, Denies weakness Ears, nose, mouth and throat: Denies dental pain, Denies dysphagia, Denies headache, Denies mouth pain, Denies nasal congestion, Denies nasal discharge, Denies sore throat, Denies vertigo Cardiovascular: Denies chest pain, Denies dyspnea on exertion, Denies edema, Denies irregular heart beat, Denies leg edema, Denies lightheadedness, Denies shortness of breath, Denies syncope Respiratory: Denies cough, Denies cough with sputum, Denies dyspnea, Denies excessive sputum, Denies hemoptysis, Denies home oxygen, Denies respiratory infections, Denies wheezing Gastrointestinal: Denies abdominal pain, Denies diarrhea, Denies nausea, Denies vomiting Genitourinary: Denies dysuria, Denies hematuria, Denies urgency, Denies urinary frequency Menstruation: Reports postmenopausal Musculoskeletal: Reports gait dysfunction, Reports muscle weakness, Denies frequent falls, Denies myalgias Integumentary: Denies pruritus, Denies rash, Denies wounds Neurological: Reports weakness, Denies change in mentation, Denies change in speech, Denies numbness, Denies seizures Psychiatric: Denies anxiety, Denies depression Endocrine: Denies fatigue, Denies weight change Physical examination Gen: This is an 84-year-old female. Patient is very cachectic appearing. Patient is resting in bed and appears to be comfortable. HEENT: Head is atraumatic, normocephalic. Pupils equal, round. Sclerae is anicteric. NECK: Supple. No JVD. No lymphadenopathy. No thyromegaly. LUNGS: Clear to auscultation. No wheezes or rhonchi. No intercostal ret ractions. HEART: Regular rate and rhythm. No murmur. ABDOMEN: Soft. Bowel sounds are present. No masses. No tenderness. EXTREMITIES: No pedal edema. No calf tenderness. Left lower extremity is ext ernally rotated and shortened. NEUROLOGICAL: Patient is awake, alert and oriented x3. Cranial nerves 2 through 12 are grossly intact. - Labs CBC & Chem 7: 12/14/19 05:57 12/14/19 04:59 Labs: Abnormal Lab Results - Last 24 Hours (Table) 12/13/19 12/13/19 12/14/19 Range/Units 10:57 18:04 04:59 WBC 27.8 H (3.8-10.6) k/uL RBC 3.63 L (3.80-5.40) m/uL Hgb 11.2 L (11.4-16.0) gm/dL Hct (34.0-46.0) % Plt Count (150-450) k/uL Neutrophils # 21.5 H (1.3-7.7) k/uL Lymphocytes # 0.8 L (1.0-4.8) k/uL Monocytes # 5.0 H (0-1.0) k/uL Sodium 134 L (137-145) mmol/L Potassium 5.4 H (3.5-5.1) mmol/L Carbon Dioxide 16 L (22-30) mmol/L BUN 39 H (7-17) mg/dL Creatinine 1.45 H (0.52-1.04) mg/dL Calcium 8.2 L (8.4-10.2) mg/dL Ferritin 325.6 H (10.0-291.0) ng/mL Lactate Dehydrogenase 724 H (313-618) U/L C-Reactive Protein 71.2 H (<10.0) mg/L Total Protein 5.5 L (6.3-8.2) g/dL Albumin 2.9 L (3.5-5.0) g/dL 12/14/19 Range/Units 05:57 WBC 24.9 H (3.8-10.6) k/uL RBC 3.54 L (3.80-5.40) m/uL Hgb 10.5 L (11.4-16.0) gm/dL Hct 33.5 L (34.0-46.0) % Plt Count 129 L (150-450) k/uL Neutrophils # 17.1 H (1.3-7.7) k/uL Lymphocytes # (1.0-4.8) k/uL Monocytes # 6.3 H (0-1.0) k/uL Sodium (137-145) mmol/L Potassium (3.5-5.1) mmol/L Carbon Dioxide (22-30) mmol/L BUN (7-17) mg/dL Creatinine (0.52-1.04) mg/dL Calcium (8.4-10.2) mg/dL Ferritin (10.0-291.0) ng/mL Lactate Dehydrogenase (313-618) U/L C-Reactive Protein (<10.0) mg/L Total Protein (6.3-8.2) g/dL Albumin (3.5-5.0) g/dL Assessment and Plan Assessment: 1 Acute intertrochanteric fracture of the left hip with avulsion of the lesser trochanter, buckle fracture of the right superior pubic symphysis, status post fall, status post surgery and she is postoperative day #2. Doing well still in isolation. 2 Nondisplaced distal left clavicular fracture, status post fall, on sling no surgical intervention required. 3 CoVID 19 positive, patient has no active pulmonary symptoms and her chest x- ray is reassuring. 4 History of dementia: Was started back on Rivastigmin 0.5 g twice a day. 5 acute leukocytosis: Most likely reaction to hip fracture and the Covid 19. Still watching for any secondary infection at this point including UTI. 6 weight loss and severe protein calorie malnutrition: Continue Remeron and continue protein supplement. 7 hypokalemia: On supplement therapy. GI prophylaxis: On Pepcid. Discharge planning: Patient will be going to shelter rehab after she is a clear for the Covid 19 and having negative test she will need to start PTOT in the hospital at this point.
--- NOTE | 2019-12-14 13:48 | P.PN ---
Subjective Progress Note Date: 12/14/19 Principal diagnosis: Left IT fracture Patient is seen at bedside this morning in ICU. She is postop day #1 from left IT nail for left IT femur fracture. She is resting comfortably. She has pain at the surgical site as expected but denies any new complaints. She denies new numbness, tingling or calf pain. Objective - Vital Signs Vital signs: Vital Signs Temp 96.8 F L 12/14/19 08:00 Pulse 92 12/14/19 12:00 Resp 16 12/14/19 12:00 BP 127/75 12/14/19 12:00 Pulse Ox 95 12/14/19 12:00 Intake & Output 12/13/19 12/14/19 12/14/19 18:59 06:59 18:59 Intake Total 520 1140 290 Output Total 200 670 195 Balance 320 470 95 Weight 43.091 kg 44.9 kg Intake: IV 520 840 290 Sodium Chloride 0.9% 1, 120 840 240 000 ml @ 60 mls/hr IV . [id number] [facility] Rx#:[id number] ceFAZolin 1 gm In Sodium 50 Chloride 0.9% 50 ml @ 100 mls/hr IVPB Q8HR [facility] Rx# :[id number] Tube Feeding 300 Output: Urine 150 670 195 Estimated Blood Loss 50 Other: Voiding Method Indwelling Catheter Indwelling Catheter Indwelling Catheter - Exam Inspection reveals a benign surgical wound. There is no active bleeding or drainage. Neurovascular status is intact throughout the lower extremity with motor and sensation is intact. Calf is soft and nontender. 2+ dorsalis pedis pulse and less than 2 second cap refill is present. - Constitutional General appearance: Present: no acute distress - Labs CBC & Chem 7: 12/14/19 05:57 12/14/19 04:59 Labs: Abnormal Lab Results - Last 24 Hours (Table) 12/13/19 12/13/19 12/14/19 Range/Units 10:57 18:04 04:59 WBC 27.8 H (3.8-10.6) k/uL RBC 3.63 L (3.80-5.40) m/uL Hgb 11.2 L (11.4-16.0) gm/dL Hct (34.0-46.0) % Plt Count (150-450) k/uL Neutrophils # 21.5 H (1.3-7.7) k/uL Lymphocytes # 0.8 L (1.0-4.8) k/uL Monocytes # 5.0 H (0-1.0) k/uL Sodium 134 L (137-145) mmol/L Potassium 5.4 H (3.5-5.1) mmol/L Carbon Dioxide 16 L (22-30) mmol/L BUN 39 H (7-17) mg/dL Creatinine 1.45 H (0.52-1.04) mg/dL Calcium 8.2 L (8.4-10.2) mg/dL Ferritin 325.6 H (10.0-291.0) ng/mL Lactate Dehydrogenase 724 H (313-618) U/L C-Reactive Protein 71.2 H (<10.0) mg/L Total Protein 5.5 L (6.3-8.2) g/dL Albumin 2.9 L (3.5-5.0) g/dL 12/14/19 Range/Units 05:57 WBC 24.9 H (3.8-10.6) k/uL RBC 3.54 L (3.80-5.40) m/uL Hgb 10.5 L (11.4-16.0) gm/dL Hct 33.5 L (34.0-46.0) % Plt Count 129 L (150-450) k/uL Neutrophils # 17.1 H (1.3-7.7) k/uL Lymphocytes # (1.0-4.8) k/uL Monocytes # 6.3 H (0-1.0) k/uL Sodium (137-145) mmol/L Potassium (3.5-5.1) mmol/L Carbon Dioxide (22-30) mmol/L BUN (7-17) mg/dL Creatinine (0.52-1.04) mg/dL Calcium (8.4-10.2) mg/dL Ferritin (10.0-291.0) ng/mL Lactate Dehydrogenase (313-618) U/L C-Reactive Protein (<10.0) mg/L Total Protein (6.3-8.2) g/dL Albumin (3.5-5.0) g/dL Assessment and Plan (1) Fracture, intertrochanteric, left femur Narrative/Plan: She will continue with routine postop orthopedic protocol including pain management, wound care, PT, DVT prophylaxis and medical management. Will monitor and make further recommendations as appropriate. Current Visit: Yes Status: Acute Code(s): S72.142A - DISPLACED INTERTROCHANTERIC FRACTURE OF LEFT FEMUR, INIT SNOMED Code(s): 214833287 Time with Patient: Less than 30
[2019-12-14 17:25] LABS: Glucose,Whole Blood 96 mg/dL (75-99)
[2019-12-14] MEDS: SENNOSIDES-DOCUSATE SODIUM 1 EACH TAB PO SCH (20:19)
[2019-12-14] MEDS: MIRTAZAPINE 15 MG TAB PO SCH (20:19)
[2019-12-15] MEDS: POTASSIUM CHLORIDE ER 20 MEQ TAB.ER PO SCH (08:47)
[2019-12-15] MEDS: FAMOTIDINE 20 MG TAB PO SCH (08:47)
[2019-12-15] MEDS: ASPIRIN 325 MG TAB PO SCH ×2 (08:47→20:34)
[2019-12-15] MEDS: DONEPEZIL 5 MG TAB PO SCH (08:47)
[2019-12-15] MEDS: ENOXAPARIN 30 MG/0.3 ML SYRINGE SQ SCH (08:47)
[2019-12-15] MEDS: SODIUM CHLORIDE 0.9% 1,000 ML IV SCH ×2 (08:48→20:34)
[2019-12-15 08:54] LABS: Basophils # (A) 0.1 k/uL (0-0.2); Basophils % (A) 1 %; Eosinophils # (A) 0.2 k/uL (0-0.7); Eosinophils % (A) 1 %; HCT 27.3 % (34.0-46.0); Hypochromasia Slight; Lymphocytes # (A) 0.4 k/uL (1.0-4.8); Lymphocytes % (A) 2 %; MCH 30.6 pg (25.0-35.0); MCHC 32.3 g/dL (31.0-37.0); MCV 94.8 fL (80.0-100.0); Mean Platelet Volume 11.9; Monocytes # (A) 2.8 k/uL (0-1.0); Monocytes % (A) 13 %; Neutrophils # (A) 17.8 k/uL (1.3-7.7); Neutrophils % (A) 83 %; Platelet Count 126 k/uL (150-450); RBC 2.88 m/uL (3.80-5.40); WBC 21.4 k/uL (3.8-10.6)
[2019-12-15 08:58] LABS: Albumin 2.5 g/dL (3.5-5.0); C Reactive Protein 87.5 mg/L (<10.0); Calcium 8.3 mg/dL (8.4-10.2); Potassium 4.4 mmol/L (3.5-5.1); Total Bilirubin 0.5 mg/dL (0.2-1.3)
[2019-12-15 09:00] LABS: HGB 8.8 gm/dL (11.4-16.0)
--- NOTE | 2019-12-15 11:13 | XR ---
EXAMINATION TYPE: XR chest 1V portable DATE OF EXAM: 12/15/2019 COMPARISON: 12/14/2019 HISTORY: Prior abnormal chest x-ray. Follow-up exam. Recent hip fracture and repair. TECHNIQUE: Single frontal view of the chest is obtained. FINDINGS: Persistent right hemidiaphragm elevation. Old healed right upper lateral rib fractures and left lower rib fractures. Diffuse osseous demineralization. Apical lucency suggests underlying COPD. Trachea is deviated to the right secondary to a prominent aortic arch, unchanged from the prior. Car diomediastinal silhouette is now rotated secondary to patient positioning. No new focal consolidation . IMPRESSION: Persistent right hemidiaphragm elevation. No new focal consolidation.
--- NOTE | 2019-12-15 11:19 | P.PN ---
Subjective Progress Note Date: 12/15/19 Principal diagnosis: Left IT fracture Patient is seen at bedside this morning on 4S. She is postop day #2 from left IT nail for left IT femur fracture. She is resting comfortably. She has pain at the surgical site as expected but denies any new complaints. She denies new numbness, tingling or calf pain. Objective - Vital Signs Vital signs: Vital Signs Temp 96.5 F L 12/15/19 08:42 Pulse 76 12/15/19 08:42 Resp 18 12/15/19 08:42 BP 117/66 12/15/19 08:42 Pulse Ox 99 12/15/19 08:42 Intake & Output 12/14/19 12/15/19 12/15/19 18:59 06:59 18:59 Intake Total 650 1100 Output Total 315 150 Balance 335 950 Weight 44 kg Intake: IV 650 Sodium Chloride 0.9% 1, 600 000 ml @ 100 mls/hr IV . Q10H [facility] Rx#:[id number] ceFAZolin 1 gm In Sodium 50 Chloride 0.9% 50 ml @ 100 mls/hr IVPB Q8HR [facility] Rx# :[id number] Intake, IV Titration 1100 Amount Sodium Chloride 0.9% 1, 1100 000 ml @ 100 mls/hr IV . Q10H [facility] Rx#:[id number] Output: Urine 315 150 Other: Voiding Method Indwelling Catheter Indwelling Catheter - Exam Inspection reveals a benign surgical wound. There is no active bleeding or drainage. Neurovascular status is intact throughout the lower extremity with motor and sensation is intact. Calf is soft and nontender. 2+ dorsalis pedis pulse and less than 2 second cap refill is present. - Constitutional General appearance: Present: no acute distress - Labs CBC & Chem 7: 12/15/19 08:27 12/15/19 08:27 Labs: Abnormal Lab Results - Last 24 Hours (Table) 12/15/19 12/15/19 Range/Units 08:27 08:27 WBC 21.4 H (3.8-10.6) k/uL RBC 2.88 L (3.80-5.40) m/uL Hgb 8.8 L D (11.4-16.0) gm/dL Hct 27.3 L (34.0-46.0) % Plt Count 126 L (150-450) k/uL Neutrophils # 17.8 H (1.3-7.7) k/uL Lymphocytes # 0.4 L (1.0-4.8) k/uL Monocytes # 2.8 H (0-1.0) k/uL Chloride 111 H (98-107) mmol/L Carbon Dioxide 19 L (22-30) mmol/L BUN 34 H (7-17) mg/dL Calcium 8.3 L (8.4-10.2) mg/dL AST 13 L (14-36) U/L Creatine Kinase 29 L (30-135) U/L C-Reactive Protein 87.5 H (<10.0) mg/L Total Protein 5.0 L (6.3-8.2) g/dL Albumin 2.5 L (3.5-5.0) g/dL Assessment and Plan (1) Fracture, intertrochanteric, left femur Narrative/Plan: She will continue with routine postop orthopedic protocol including pain management, wound care, PT, DVT prophylaxis and medical management. Will monitor and make further recommendations as appropriate. COntinue protected weightbearing. May transfer to [facility] from orthopedic standpoint when okay with IM. Current Visit: Yes Status: Acute Code(s): S72.142A - DISPLACED INTERTROCHANTERIC FRACTURE OF LEFT FEMUR, INIT SNOMED Code(s): 522690831 Time with Patient: Less than 30
--- NOTE | 2019-12-15 12:35 | P.PN ---
Subjective Progress Note Date: 12/15/19 Principal diagnosis: Left intertrochanteric hip fracture, left nondisplaced distal left clavicular fracture, COVID 19 positive with no pulmonary symptoms, dementia, anemia, electrolyte imbalance or leukocytosis. This is an 84-year-old female patient of with past medical history of generalized osteoarthritis, osteoporosis, anemia, chronic hypokalemia, hypothyroidism, frequent urinary tract infections, diverticulitis, dementia. Patient has been seen in the office on multiple occasions recently with general problems including weight loss. Patient refused [id number]. long term placement was being worked on between [facility] or [facility]. The patient has a sister that lives in the apartment [place] the [place] her and has been assisting her. Yesterday, patient had a fall after losing her balance, fell in the bathroom and hit her face on the sink and landed on her left side. She is complaining of left hip and left shoulder pain as well as head pain. Patient denies any loss of consciousness. No nausea, vomiting, dizziness, chest pain, shortness of breath. She denies any abdominal pain. She was afebrile and vital signs were stable, WBC 24.4, hemoglobin 13.7, platelets 140, sodium 133, potassium 4.7, chloride 103, CO2 24, BUN 15, creatinine 0.76, blood sugar 108. CAT scan of the brain, cervical spine, facial bones showed no acute abnormalities. Left shoulder x-ray showed moderately advanced degenerative changes of the left shoulder. There may be an old fracture of the distal clavicle. Right hip and pelvis showed intertrochanteric fracture left hip with avulsion of the lesser trochanter. Buccal fracture of the right superior pubic symphysis. Patient was placed on a sling and admitted to [facility] floor under orthopedics. 12/12: Received call this morning from patient's nurse the patient was positive for COVID-19. Consult added for Dr. Colmenares. Orthopedics has been notified. Patient denies any new complaints. Appears to be still slightly more weak today from yesterday. She has been afebrile, heart rate 98, blood pressure 131/70, pulse ox 95% on room air. D-dimer 1.48. Sodium 133, potassium 5.2, chloride 104, CO2 19, BUN 32, creatinine 1.4, blood sugar 112. LDH 678, CK 28, C- reactive protein and a 4.1. Patient's sister will be contacted after rounds regarding update on patient condition and the Covid 19 positive test result. 12/13: Patient had nailing of the hip fracture a doing well with it so far, left clavicular fracture she had sling at this point conservative management no surgical intervention is required. Patient Covid 19 is positive but she is not symptomatic at this point she is on conservative management and supportive care no fever chills no cough no finding on x-ray. The biggest dilemma will be how to send patient from the [facility] with Covid positive she'll need to have the test repeated and need to be negative before able to move to the [facility]. 12/14 Abimael patient was transfer out of the ICU she is on the fourth floor still in isolation for the Covid 19, patient will be having another Covid 19 test today to see if her positive was very positive of falls positive because patient as of now still have no symptom of infection. Pain is under control mobility so decreased patient slightly but confused. Patient eventually need [facility] go to [facility] but ~Covid 19 issue is a clear she'll be in the hospital. Objective - Vital Signs Vital signs: Vital Signs Temp 96.5 F L 12/15/19 08:42 Pulse 76 12/15/19 08:42 Resp 18 12/15/19 08:42 BP 117/66 12/15/19 08:42 Pulse Ox 99 12/15/19 08:42 Intake & Output 12/14/19 12/15/19 12/15/19 18:59 06:59 18:59 Intake Total 650 1100 Output Total 315 150 Balance 335 950 Weight 44 kg Intake: IV 650 Sodium Chloride 0.9% 1, 600 000 ml @ 100 mls/hr IV . Q10H [facility] Rx#:[id number] ceFAZolin 1 gm In Sodium 50 Chloride 0.9% 50 ml @ 100 mls/hr IVPB Q8HR [facility] Rx# :[id number] Intake, IV Titration 1100 Amount Sodium Chloride 0.9% 1, 1100 000 ml @ 100 mls/hr IV . Q10H [facility] Rx#:[id number] Output: Urine 315 150 Other: Voiding Method Indwelling Catheter Indwelling Catheter - Exam Review of Systems Constitutional: Reports weight loss, Denies anorexia, Denies chills, Denies fatigue, Denies fever, Denies lethargy, Denies malaise, Denies poor appetite, Denies weakness Ears, nose, mouth and throat: Denies dental pain, Denies dysphagia, Denies headache, Denies mouth pain, Denies nasal congestion, Denies nasal discharge, Denies sore throat, Denies vertigo Cardiovascular: Denies chest pain, Denies dyspnea on exertion, Denies edema, Denies irregular heart beat, Denies leg edema, Denies lightheadedness, Denies shortness of breath, Denies syncope Respiratory: Denies cough, Denies cough with sputum, Denies dyspnea, Denies excessive sputum, Denies hemoptysis, Denies home oxygen, Denies respiratory infections, Denies wheezing Gastrointestinal: Denies abdominal pain, Denies diarrhea, Denies nausea, Denies vomiting Genitourinary: Denies dysuria, Denies hematuria, Denies urgency, Denies urinary frequency Menstruation: Reports postmenopausal Musculoskeletal: Reports gait dysfunction, Reports muscle weakness, Denies frequ ent falls, Denies myalgias Integumentary: Denies pruritus, Denies rash, Denies wounds Neurological: Reports weakness, Denies change in mentation, Denies change in speech, Denies numbness, Denies seizures Psychiatric: Denies anxiety, Denies depression Endocrine: Denies fatigue, Denies weight change Physical examination Gen: This is an 84-year-old female. Patient is very cachectic appearing. Patient is resting in bed and appears to be comfortable. HEENT: Head is atraumatic, normocephalic. Pupils equal, round. Sclerae is anicteric. NECK: Supple. No JVD. No lymphadenopathy. No thyromegaly. LUNGS: Clear to auscultation. No wheezes or rhonchi. No intercostal retractions. HEART: Regular rate and rhythm. No murmur. ABDOMEN: Soft. Bowel sounds are present. No masses. No tenderness. EXTREMITIES: No pedal edema. No calf tenderness. Left lower extremity is externally rotated and shortened. NEUROLOGICAL: Patient is awake, alert and oriented x3. Cranial nerves 2 through 12 are grossly intact. - Labs CBC & Chem 7: 12/15/19 08:27 12/15/19 08:27 Labs: Abnormal Lab Results - Last 24 Hours (Table) 12/15/19 12/15/19 Range/Units 08:27 08:27 WBC 21.4 H (3.8-10.6) k/uL RBC 2.88 L (3.80-5.40) m/uL Hgb 8.8 L D (11.4-16.0) gm/dL Hct 27.3 L (34.0-46.0) % Plt Count 126 L (150-450) k/uL Chloride 111 H (98-107) mmol/L Carbon Dioxide 19 L (22-30) mmol/L BUN 34 H (7-17) mg/dL Calcium 8.3 L (8.4-10.2) mg/dL AST 13 L (14-36) U/L Creatine Kinase 29 L (30-135) U/L C-Reactive Protein 87.5 H (<10.0) mg/L Total Protein 5.0 L (6.3-8.2) g/dL Albumin 2.5 L (3.5-5.0) g/dL Assessment and Plan Assessment: 1 Acute intertrochanteric fracture of the left hip with avulsion of the lesser trochanter, buckle fracture of the right superior pubic symphysis, status post fall, status post surgery and she is postoperative day #2. Doing well still in isolation. 2 Nondisplaced distal left clavicular fracture, status post fall, on sling no surgical intervention required. 3 CoVID 19 positive, patient has no active pulmonary symptoms and her chest x- ray is reassuring. We will order another Covid 19 test today if it's negative one more test will be ordered on Monday morning before going to rehab. 4 History of dementia: Was started back on Rivastigmin 0.5 g twice a day. 5 acute leukocytosis: Most likely reaction to hip fracture and the Covid 19. Still watching for any secondary infection at this point including UTI. 6 weight loss and severe protein calorie malnutrition: Continue Remeron and continue protein supplement. 7 hypokalemia: On supplement therapy. GI prophylaxis: On Pepcid. Discharge planning: [facility] after she is a clear for the Covid 19 and having negative test she will need to start PTOT in the hospital at this point.
--- NOTE | 2019-12-15 12:39 | P.PN ---
Subjective Progress Note Date: 12/15/19 Principal diagnosis: Left hip fracture This is a very pleasant 84-year-old female patient who follows with Dr. Charles as her primary care provider. She has a history of osteoarthritis, osteoporosis, hypothyroidism, frequent urinary tract infections, diverticulitis, anemia, demen tia. She is quite frail and cachectic. She is a lifelong nonsmoker. She lives in an apartment by herself however her sister lives across this hallway. She presented to the emergency room yesterday yesterday after sustaining a fall in her bathroom hitting her face on the sink and landed on her left side. She did have left hip and shoulder pain. Computed tomography scan of the brain and C-spine revealed multiple compression fractures of the upper thoracic vertebrae up to 50% with thoracic kyphotic deformity. No cerebral atrophy. No acute intracranial abnormality. No cervical spine fracture. Face CT revealed no fracture. She has a nondisplaced distal left clavicular fracture. She was also found to have an intertrochanteric fracture of the left hip with avulsion of the lesser trochanter. There is a buckle fracture of the right superior pubic symphysis. The plan is for surgical repair today. We are consulted as the patient will be recovered in the intensive care unit based on her multiple comorbidities. She is seen today on the regular medical floor. She is quite frail and cachectic. A poor historian. White count 19.7. Hemoglobin 11.4. Sodium 133. Potassium 5.2. Bicarb 19. Creatinine 1.40. LDH 678. Creatinine kinase 28. C-reactive protein 84. D-dimer 1.48. Naqvi virus PCR detected. Chest x-ray revealed mild atelectatic changes in the right lung base with elevation of the right diaphragm. She is currently maintaining O2 saturations in the mid 90s on room air. She's afebrile. Hemodynamically stable. Patient was reevaluated today on 12/14/19. Patient is status post left hip intratrochanteric fracture closed reduction and intramedullary nailing. She is postoperative day #1. Patient is in the ICU, however she is doing great. She is on 2 L nasal cannula, in no form of respiratory distress. Her chest x-ray remains clear. Patient tested positive for covid 19 PCR. However clinically the patient is doing great, and asymptomatic. WBC count today is 24.9 hemoglobin is 10.5 electrolytes showed slightly low bicarb of 16, renal functioning is a bit worse with a BUN of 39 creatinine 1.45, C-reactive protein is 71 LDH is 724. The patient was seen today 12/15/2019 in follow-up on the regular medical floor. She is currently resting comfortably in bed. Awake and alert in no acute distress. This postoperative day #2. She is maintaining O2 saturations in the upper 90s on 3 L/m per nasal cannula. She's been afebrile. Hemodynamically sta ble. White count 21.4. Hemoglobin 8.8. Platelets 126. Sodium 137. Potassium 4.4. Creatinine 0.86. Bicarb 19. LDH 527, creatinine kinase 29, C-reactive protein 87. Chest x-ray shows persistent right hemidiaphragm elevation. No focal consolidation. Objective - Vital Signs Vital signs: Vital Signs Temp 96.5 F L 12/15/19 08:42 Pulse 76 12/15/19 08:42 Resp 18 12/15/19 08:42 BP 117/66 12/15/19 08:42 Pulse Ox 99 12/15/19 08:42 Intake & Output 12/14/19 12/15/19 12/15/19 18:59 06:59 18:59 Intake Total 650 1100 Output Total 315 150 Balance 335 950 Weight 44 kg Intake: IV 650 Sodium Chloride 0.9% 1, 600 000 ml @ 100 mls/hr IV . Q10H [facility] Rx#:[id number] ceFAZolin 1 gm In Sodium 50 Chloride 0.9% 50 ml @ 100 mls/hr IVPB Q8HR [facility] Rx# :[id number] Intake, IV Titration 1100 Amount Sodium Chloride 0.9% 1, 1100 000 ml @ 100 mls/hr IV . Q10H [facility] Rx#:[id number] Output: Urine 315 150 Other: Voiding Method Indwelling Catheter Indwelling Catheter Indwelling Catheter - Exam GENERAL EXAM: Awake, very frail 84-year-old female patient, on 3 L nasal cannula, in no distress HEAD: Normocephalic. EYES: Normal reaction of pupils, equal size. NOSE: Clear with pink turbinates. THROAT: No erythema or exudates. NECK: No masses, no JVD. CHEST: No chest wall deformity. LUNGS: Equal air entry with crackles in the right base. CVS: S1 and S2 normal with no audible murmur, regular rhythm. ABDOMEN: No hepatosplenomegaly, normal bowel sounds, no guarding or rigidity. SPINE: Kyphoscoliosis SKIN: No rashes CENTRAL NERVOUS SYSTEM: No focal deficits, tone is normal in all 4 extremities. EXTREMITIES: Left hip dressing dry and intact. No clubbing edema or cyanosis - Labs CBC & Chem 7: 12/15/19 08:27 12/15/19 08:27 Labs: Abnormal Lab Results - Last 24 Hours (Table) 12/15/19 12/15/19 Range/Units 08:27 08:27 WBC 21.4 H (3.8-10.6) k/uL RBC 2.88 L (3.80-5.40) m/uL Hgb 8.8 L D (11.4-16.0) gm/dL Hct 27.3 L (34.0-46.0) % Plt Count 126 L (150-450) k/uL Neutrophils # 17.8 H (1.3-7.7) k/uL Lymphocytes # 0.4 L (1.0-4.8) k/uL Monocytes # 2.8 H (0-1.0) k/uL Chloride 111 H (98-107) mmol/L Carbon Dioxide 19 L (22-30) mmol/L BUN 34 H (7-17) mg/dL Calcium 8.3 L (8.4-10.2) mg/dL AST 13 L (14-36) U/L Creatine Kinase 29 L (30-135) U/L C-Reactive Protein 87.5 H (<10.0) mg/L Total Protein 5.0 L (6.3-8.2) g/dL Albumin 2.5 L (3.5-5.0) g/dL Assessment and Plan Assessment: 1 Acute intertrochanteric fracture of the left hip with avulsion of the lesser trochanter, buckle fracture of the right superior pubic symphysis, status post fall. Status post closed reduction and intramedullary nailing. Postoperative day #2. 2 Nondisplaced distal left clavicular fracture, status post fall 3 CoVID 19 positive 4 History of dementia 5 Protein calorie malnutrition/cachexia 6 History of osteoarthritis/osteoporosis 7 Poor overall functional performance based on the above-mentioned multiple comorbidities Plan: The patient was seen and evaluated by Dr. Yanez Chest x-ray, inflammatory markers reviewed Continue Lovenox Continue Pepcid We will continue to follow and make further recommendations based on her clinical status I, the cosigning physician, performed a history & physical examination of the patient. Lungs sounds with crackles in the right base. Maintaining good O2 saturations in the 90s on 3 L/m per nasal cannula. I discussed the assessment and plan of care with my nurse practitioner, Itzel Olivas. I attest to the above note as dictated by her.
[2019-12-15] MEDS: HYDROcodone/APAP 5-325MG 1 EACH TAB PO PRN (15:50)
[2019-12-15 17:21] LABS: Basophils # (A) 0.1 k/uL (0-0.2); Basophils % (A) 1 %; Eosinophils # (A) 0.2 k/uL (0-0.7); Eosinophils % (A) 1 %; HCT 29.1 % (34.0-46.0); HGB 9.1 gm/dL (11.4-16.0); Hypochromasia Marked; Lymphocytes # (A) 0.5 k/uL (1.0-4.8); Lymphocytes % (A) 2 %; MCH 30.5 pg (25.0-35.0); MCHC 31.4 g/dL (31.0-37.0); MCV 97.4 fL (80.0-100.0); Mean Platelet Volume 11.4; Monocytes # (A) 3.7 k/uL (0-1.0); Monocytes % (A) 15 %; Neutrophils # (A) 19.8 k/uL (1.3-7.7); Neutrophils % (A) 81 %; Platelet Count 142 k/uL (150-450); RBC 2.99 m/uL (3.80-5.40); RDW 15.2 % (11.5-15.5); WBC 24.5 k/uL (3.8-10.6)
[2019-12-15 17:58] LABS: Poikilocytosis (M) Present; Polychromasia Present
[2019-12-15] MEDS: SENNOSIDES-DOCUSATE SODIUM 1 EACH TAB PO SCH (20:28)
[2019-12-15] MEDS: MIRTAZAPINE 15 MG TAB PO SCH (20:34)
[2019-12-16 07:37] LABS: Basophils # (A) 0.1 k/uL (0-0.2); Basophils % (A) 1 %; Eosinophils # (A) 0.1 k/uL (0-0.7); Eosinophils % (A) 1 %; HCT 27.2 % (34.0-46.0); HGB 8.1 gm/dL (11.4-16.0); Hypochromasia Marked; Lymphocytes # (A) 0.6 k/uL (1.0-4.8); Lymphocytes % (A) 4 %; MCH 29.7 pg (25.0-35.0); MCHC 29.7 g/dL (31.0-37.0); MCV 99.9 fL (80.0-100.0); Macrocytosis Slight; Mean Platelet Volume 10.7; Monocytes # (A) 2.6 k/uL (0-1.0); Monocytes % (A) 17 %; Neutrophils # (A) 11.8 k/uL (1.3-7.7); Neutrophils % (A) 77 %; Platelet Count 145 k/uL (150-450); RBC 2.73 m/uL (3.80-5.40); RDW 15.1 % (11.5-15.5); WBC 15.4 k/uL (3.8-10.6)
[2019-12-16 07:48] LABS: ALT 6 U/L (4-34); AST 14 U/L (14-36); African American GFR (CKD) >90 (>60 ml/min/1.73 sqM); Albumin 2.5 g/dL (3.5-5.0); Alkaline Phosphatase 102 U/L (38-126); Anion Gap 8 mmol/L; Blood Urea Nitrogen 23 mg/dL (7-17); Calcium 8.4 mg/dL (8.4-10.2); Carbon Dioxide 18 mmol/L (22-30); Chloride 114 mmol/L (98-107); Creatine Kinase <20 U/L (30-135); Glucose 90 mg/dL (74-99); LDH 606 U/L (313-618); Non-African American GFR(CKD) 82 (>60 ml/min/1.73 sqM); Potassium 4.2 mmol/L (3.5-5.1); Sodium 140 mmol/L (137-145); Total Bilirubin 0.7 mg/dL (0.2-1.3)
[2019-12-16 08:08] LABS: C Reactive Protein 199.1 mg/L (<10.0)
[2019-12-16] MEDS: ENOXAPARIN 30 MG/0.3 ML SYRINGE SQ SCH (08:25)
[2019-12-16] MEDS: POTASSIUM CHLORIDE ER 20 MEQ TAB.ER PO SCH (08:25)
[2019-12-16] MEDS: FAMOTIDINE 20 MG TAB PO SCH (08:25)
[2019-12-16] MEDS: DONEPEZIL 5 MG TAB PO SCH (08:25)
[2019-12-16] MEDS: ASPIRIN 325 MG TAB PO SCH ×2 (08:25→20:20)
[2019-12-16] MEDS: SODIUM CHLORIDE 0.9% 1,000 ML IV SCH ×3 (08:29→20:28)
--- NOTE | 2019-12-16 11:13 | P.PN ---
Subjective Progress Note Date: 12/16/19 Principal diagnosis: Left intertrochanteric hip fracture, left nondisplaced distal left clavicular fracture, COVID 19 positive with no pulmonary symptoms, dementia, anemia, electrolyte imbalance or leukocytosis. This is an 84-year-old female patient of with past medical history of generalized osteoarthritis, osteoporosis, anemia, chronic hypokalemia, hypothyroidism, frequent urinary tract infections, diverticulitis, dementia. Patient has been seen in the office on multiple occasions recently with general problems including weight loss. Patient refused [id number]. snf placement was being worked on between [facility] or [facility]. The patient has a sister that lives in the apartment across the [place] from her and has been assisting her. Yesterday, patient had a fall after losing her balance, fell in the bathroom and hit her face on the sink and landed on her left side. She is complaining of left hip and left shoulder pain as well as head pain. Patient denies any loss of consciousness. No nausea, vomiting, dizziness, chest pain, shortness of breath. She denies any abdominal pain. She was afebrile and vital signs were stable, WBC 24.4, hemoglobin 13.7, platelets 140, sodium 133, potassium 4.7, chloride 103, CO2 24, BUN 15, creatinine 0.76, blood sugar 108. CAT scan of the brain, cervical spine, facial bones showed no acute abnormalities. Left shoulder x-ray showed moderately advanced degenerative changes of the left shoulder. There may be an old fracture of the distal clavicle. Right hip and pelvis showed intertrochanteric fracture left hip with avulsion of the lesser trochanter. Buccal fracture of the right superior pubic symphysis. Patient was placed on a sling and admitted to the [facility] floor under orthopedics. 12/12: Received call this morning from patient's nurse the patient was positive for COVID-19. Consult added for Dr. Colmenares. Orthopedics has been notified. Patient denies any new complaints. Appears to be still slightly more weak today from yesterday. She has been afebrile, heart rate 98, blood pressure 131/70, pulse ox 95% on room air. D-dimer 1.48. Sodium 133, potassium 5.2, chloride 104, CO2 19, BUN 32, creatinine 1.4, blood sugar 112. LDH 678, CK 28, C- reactive protein and a 4.1. Patient's sister will be contacted after rounds regarding update on patient condition and the Covid 19 positive test result. 12/13: Patient had nailing of the hip fracture a doing well with it so far, left clavicular fracture she had sling at this point conservative management no surgical intervention is required. Patient Covid 19 is positive but she is not symptomatic at this point she is on conservative management and supportive care no fever chills no cough no finding on x-ray. The biggest dilemma will be how to send patient from the hospital to the residential rehab with Covid positive she'll need to have the test repeated and need to be negative before able to move to the residential rehab. 12/14: patient was transfer out of the ICU she is on the fourth floor still in isolation for the Covid 19, patient will be having another Covid 19 test today to see if her positive was very positive of falls positive because patient as of now still have no symptom of infection. Pain is under control mobility so decreased patient slightly but confused. Patient eventually need to go to residential rehab but ~Covid 19 issue is a clear she'll be in the hospital. 12/15: Patient is still slightly confused her Covid 19 new tests still pending at this point, continue PTOT and hopefully prepare for rehab as soon as clear from infectious disease and pulmonary standpoint. Objective - Vital Signs Vital signs: Vital Signs Temp 97.7 F 12/16/19 03:20 Pulse 62 12/16/19 03:20 Resp 18 12/16/19 03:20 BP 123/73 12/16/19 03:20 Pulse Ox 92 L 12/16/19 03:20 Intake & Output 12/15/19 12/16/19 12/16/19 18:59 06:59 18:59 Intake Total 300 Output Total 600 300 Balance -600 0 Weight 44.3 kg Intake: Intake, IV Titration 300 Amount Sodium Chloride 0.9% 1, 300 000 ml @ 100 mls/hr IV . Q10H [facility] Rx#:[id number] Oral 0 Output: Urine 600 300 Other: Voiding Method Indwelling Catheter Indwelling Catheter - Exam Review of Systems Constitutional: Reports weight loss, Denies anorexia, Denies chills, Denies fatigue, Denies fever, Denies lethargy, Denies malaise, Denies poor appetite, Denies weakness Ears, nose, mouth and throat: Denies dental pain, Denies dysphagia, Denies headache, Denies mouth pain, Denies nasal congestion, Denies nasal discharge, Denies sore throat, Denies vertigo Cardiovascular: Denies chest pain, Denies dyspnea on exertion, Denies edema, Denies irregular heart beat, Denies leg edema, Denies lightheadedness, Denies shortness of breath, Denies syncope Respiratory: Denies cough, Denies cough with sputum, Denies dyspnea, Denies excessive sputum, Denies hemoptysis, Denies home oxygen, Denies respiratory infections, Denies wheezing Gastrointestinal: Denies abdominal pain, Denies diarrhea, Denies nausea, Denies vomiting Genitourinary: Denies dysuria, Denies hematuria, Denies urgency, Denies urinary frequency Menstruation: Reports postmenopausal Musculoskeletal: Reports gait dysfunction, Reports muscle weakness, Denies frequent falls, Denies myalgias Integumentary: Denies pruritus, Denies rash, Denies wounds Neurological: Reports weakness, Denies change in mentation, Denies change in speech, Denies numbness, Denies seizures Psychiatric: Denies anxiety, Denies depression Endocrine: Denies fatigue, Denies weight change Physical examination Gen: This is an 84-year-old female. Patient is very cachectic johnny earing. Patient is resting in bed and appears to be comfortable. HEENT: Head is atraumatic, normocephalic. Pupils equal, round. Sclerae is anicteric. NECK: Supple. No JVD. No lymphadenopathy. No thyromegaly. LUNGS: Clear to auscultation. No wheezes or rhonchi. No intercostal retractions. HEART: Regular rate and rhythm. No murmur. ABDOMEN: Soft. Bowel sounds are present. No masses. No tenderness. EXTREMITIES: No pedal edema. No calf tenderness. Left lower extremity is externally rotated and shortened. NEUROLOGICAL: Patient is awake, alert and oriented x3. Cranial nerves 2 through 12 are grossly intact. - Labs CBC & Chem 7: 12/16/19 06:46 12/16/19 06:46 Labs: Abnormal Lab Results - Last 24 Hours (Table) 05/24/20 05/24/20 05/24/20 Range/Units 08:27 08:27 12:16 WBC 21.4 H (3.8-10.6) k/uL RBC 2.88 L (3.80-5.40) m/uL Hgb 8.8 L D (11.4-16.0) gm/dL Hct 27.3 L (34.0-46.0) % MCHC (31.0-37.0) g/dL Plt Count 126 L (150-450) k/uL Neutrophils # 17.8 H (1.3-7.7) k/uL Lymphocytes # 0.4 L (1.0-4.8) k/uL Monocytes # 2.8 H (0-1.0) k/uL D-Dimer 1.77 H (<0.60) mg/L FEU Chloride 111 H (98-107) mmol/L Carbon Dioxide 19 L (22-30) mmol/L BUN 34 H (7-17) mg/dL Calcium 8.3 L (8.4-10.2) mg/dL AST 13 L (14-36) U/L Creatine Kinase 29 L (30-135) U/L C-Reactive Protein 87.5 H (<10.0) mg/L Total Protein 5.0 L (6.3-8.2) g/dL Albumin 2.5 L (3.5-5.0) g/dL 12/15/19 12/16/19 Range/Units 16:42 06:46 WBC 24.5 H 15.4 H (3.8-10.6) k/uL RBC 2.99 L 2.73 L (3.80-5.40) m/uL Hgb 9.1 L 8.1 L (11.4-16.0) gm/dL Hct 29.1 L 27.2 L (34.0-46.0) % MCHC 29.7 L (31.0-37.0) g/dL Plt Count 142 L 145 L (150-450) k/uL Neutrophils # 19.8 H 11.8 H (1.3-7.7) k/uL Lymphocytes # 0.5 L 0.6 L (1.0-4.8) k/uL Monocytes # 3.7 H 2.6 H (0-1.0) k/uL D-Dimer (<0.60) mg/L FEU Chloride (98-107) mmol/L Carbon Dioxide (22-30) mmol/L BUN (7-17) mg/dL Calcium (8.4-10.2) mg/dL AST (14-36) U/L Creatine Kinase (30-135) U/L C-Reactive Protein (<10.0) mg/L Total Protein (6.3-8.2) g/dL Albumin (3.5-5.0) g/dL Assessment and Plan Assessment: 1 Acute intertrochanteric fracture of the left hip with avulsion of the lesser trochanter, buckle fracture of the right superior pubic symphysis, status post fall, status post surgery and she is postoperative day #2. Doing well still in isolation. 2 Nondisplaced distal left clavicular fracture, status post fall, on sling no surgical intervention required. 3 CoVID 19 positive, patient has no active pulmonary symptoms and her chest x- ray is reassuring. We will order another Covid 19 test today if it's negative o ne more test will be ordered on Monday morning before going to rehab. 4 History of dementia: Was started back on Rivastigmin 0.5 g twice a day. 5 acute leukocytosis: Most likely reaction to hip fracture and the Covid 19. Still watching for any secondary infection at this point including UTI. 6 weight loss and severe protein calorie malnutrition: Continue Remeron and continue protein supplement. 7 hypokalemia: On supplement therapy. GI prophylaxis: On Pepcid. Discharge planning: Still pending Covid 19 test at this point patient would not be able to move to rehab till at least it's clear and negative.
--- NOTE | 2019-12-16 11:31 | P.PN ---
Subjective Progress Note Date: 12/16/19 Principal diagnosis: Left IT fracture Patient is seen at bedside this morning on 4S. She is postop day #3 from left IT nail for left IT femur fracture. She is resting comfortably. She has pain at the surgical site as expected but denies any new complaints. She denies new numbness, tingling or calf pain. Objective - Vital Signs Vital signs: Vital Signs Temp 97.0 F L 12/16/19 07:00 Pulse 61 12/16/19 07:00 Resp 18 12/16/19 03:20 BP 157/66 12/16/19 07:00 Pulse Ox 92 L 12/16/19 07:00 Intake & Output 12/15/19 12/16/19 12/16/19 18:59 06:59 18:59 Intake Total 300 Output Total 600 300 Balance -600 0 Weight 44.3 kg Intake: Intake, IV Titration 300 Amount Sodium Chloride 0.9% 1, 300 000 ml @ 100 mls/hr IV . Q10H JEREMÍAS Rx#:[id number] Oral 0 Output: Urine 600 300 Other: Voiding Method Indwelling Catheter Indwelling Catheter Indwelling Catheter - Exam Inspection reveals a benign surgical wound. There is no active bleeding or drainage. Neurovascular status is intact throughout the lower extremity with motor and sensation is intact. Calf is soft and nontender. 2+ dorsalis pedis pulse and less than 2 second cap refill is present. - Constitutional General appearance: Present: no acute distress - Labs CBC & Chem 7: 12/16/19 06:46 12/16/19 06:46 Labs: Abnormal Lab Results - Last 24 Hours (Table) 12/15/19 12/15/19 12/16/19 Range/Units 12:16 16:42 06:46 WBC 24.5 H 15.4 H (3.8-10.6) k/uL RBC 2.99 L 2.73 L (3.80-5.40) m/uL Hgb 9.1 L 8.1 L (11.4-16.0) gm/dL Hct 29.1 L 27.2 L (34.0-46.0) % MCHC 29.7 L (31.0-37.0) g/dL Plt Count 142 L 145 L (150-450) k/uL Neutrophils # 19.8 H 11.8 H (1.3-7.7) k/uL Lymphocytes # 0.5 L 0.6 L (1.0-4.8) k/uL Monocytes # 3.7 H 2.6 H (0-1.0) k/uL D-Dimer 1.77 H (<0.60) mg/L FEU Chloride (98-107) mmol/L Carbon Dioxide (22-30) mmol/L BUN (7-17) mg/dL Creatine Kinase (30-135) U/L C-Reactive Protein (<10.0) mg/L Total Protein (6.3-8.2) g/dL Albumin (3.5-5.0) g/dL 05// Range/Units 06:46 WBC (3.8-10.6) k/uL RBC (3.80-5.40) m/uL Hgb (11.4-16.0) gm/dL Hct (34.0-46.0) % MCHC (31.0-37.0) g/dL Plt Count (150-450) k/uL Neutrophils # (1.3-7.7) k/uL Lymphocytes # (1.0-4.8) k/uL Monocytes # (0-1.0) k/uL D-Dimer (<0.60) mg/L FEU Chloride 114 H (98-107) mmol/L Carbon Dioxide 18 L (22-30) mmol/L BUN 23 H (7-17) mg/dL Creatine Kinase <20 L (30-135) U/L C-Reactive Protein 199.1 H (<10.0) mg/L Total Protein 5.0 L (6.3-8.2) g/dL Albumin 2.5 L (3.5-5.0) g/dL Assessment and Plan (1) Fracture, intertrochanteric, left femur Narrative/Plan: She will continue with routine postop orthopedic protocol including pain management, wound care, PT, DVT prophylaxis and medical management. Will monitor and make further recommendations as appropriate. Continue protected weightbearing. May transfer to [facility] from orthopedic standpoint when okay with IM. Current Visit: Yes Status: Acute Code(s): S72.142A - DISPLACED INTERTROCHANTERIC FRACTURE OF LEFT FEMUR, INIT SNOMED Code(s): 902687504 Time with Patient: Less than 30
[2019-12-16] MEDS: SENNOSIDES-DOCUSATE SODIUM 1 EACH TAB PO SCH (20:20)
[2019-12-16] MEDS: MIRTAZAPINE 15 MG TAB PO SCH (20:20)
[2019-12-16] MEDS ORDERED: FUROSEMIDE 10 MG/ML 2 ML VIAL IV STA (22:15)
[2019-12-16] MEDS ORDERED: ALBUTEROL NEBULIZED 2.5 MG/3 ML INHALATION PRN (22:19)
--- NOTE | 2019-12-16 23:27 | XR ---
EXAMINATION TYPE: XR chest 1V portable DATE OF EXAM: 12/16/2019 COMPARISON: 12/15/2019 HISTORY: Follow-up hip surgery. Aspiration. TECHNIQUE: Single view FINDINGS: There is markedly elevated right diaphragm. There is no heart failure. Thoracic aorta is at heromatous. There is old left side humeral neck fracture. IMPRESSION: Chronic elevated right diaphragm with right basilar atelectasis that appears worse than . No heart failure seen. No change compared to yesterday.
[2019-12-17] MEDS: ENOXAPARIN 40 MG/0.4 ML SYRINGE SQ SCH (07:04)
[2019-12-17] MEDS: DONEPEZIL 5 MG TAB PO SCH (08:28)
[2019-12-17] MEDS: ASPIRIN 325 MG TAB PO SCH ×2 (08:28→22:17)
[2019-12-17] MEDS: POTASSIUM CHLORIDE ER 20 MEQ TAB.ER PO SCH (08:28)
[2019-12-17] MEDS: FAMOTIDINE 20 MG TAB PO SCH (08:28)
--- NOTE | 2019-12-17 09:51 | P.PN ---
Subjective Progress Note Date: 12/17/19 Principal diagnosis: Left hip fracture This is a very pleasant 84-year-old female patient who follows with Dr. Charles as her primary care provider. She has a history of osteoarthritis, osteoporosis, hypothyroidism, frequent urinary tract infections, diverticulitis, anemia, demen tia. She is quite frail and cachectic. She is a lifelong nonsmoker. She lives in an apartment by herself however her sister lives across this hallway. She presented to the emergency room yesterday yesterday after sustaining a fall in her bathroom hitting her face on the sink and landed on her left side. She did have left hip and shoulder pain. Computed tomography scan of the brain and C-spine revealed multiple compression fractures of the upper thoracic vertebrae up to 50% with thoracic kyphotic deformity. No cerebral atrophy. No acute intracranial abnormality. No cervical spine fracture. Face CT revealed no fracture. She has a nondisplaced distal left clavicular fracture. She was also found to have an intertrochanteric fracture of the left hip with avulsion of the lesser trochanter. There is a buckle fracture of the right superior pubic symphysis. The plan is for surgical repair today. We are consulted as the patient will be recovered in the intensive care unit based on her multiple comorbidities. She is seen today on the regular medical floor. She is quite frail and cachectic. A poor historian. White count 19.7. Hemoglobin 11.4. Sodium 133. Potassium 5.2. Bicarb 19. Creatinine 1.40. LDH 678. Creatinine kinase 28. C-reactive protein 84. D-dimer 1.48. Naqvi virus PCR detected. Chest x-ray revealed mild atelectatic changes in the right lung base with elevation of the right diaphragm. She is currently maintaining O2 saturations in the mid 90s on room air. She's afebrile. Hemodynamically stable. Patient was reevaluated today on 12/14/19. Patient is status post left hip intratrochanteric fracture closed reduction and intramedullary nailing. She is postoperative day #1. Patient is in the ICU, however she is doing great. She is on 2 L nasal cannula, in no form of respiratory distress. Her chest x-ray remains clear. Patient tested positive for covid 19 PCR. However clinically the patient is doing great, and asymptomatic. WBC count today is 24.9 hemoglobin is 10.5 electrolytes showed slightly low bicarb of 16, renal functioning is a bit worse with a BUN of 39 creatinine 1.45, C-reactive protein is 71 LDH is 724. The patient was seen today 12/15/2019 in follow-up on the regular medical floor. She is currently resting comfortably in bed. Awake and alert in no acute distress. This postoperative day #2. She is maintaining O2 saturations in the upper 90s on 3 L/m per nasal cannula. She's been afebrile. Hemodynamically sta ble. White count 21.4. Hemoglobin 8.8. Platelets 126. Sodium 137. Potassium 4.4. Creatinine 0.86. Bicarb 19. LDH 527, creatinine kinase 29, C-reactive protein 87. Chest x-ray shows persistent right hemidiaphragm elevation. No focal consolidation. The patient is seen today 12/17/2019 in follow-up on the regular floor. Last evening and A team was called due to respiratory distress and decreasing oxygen saturations. She has developed worsening hypoxemia currently requiring BiPAP support and FiO2 of 80%. Earlier this morning she was on BiPAP 12/5 and 100% FiO2 to maintain O2 saturations in the 90s. She had received additional Lasix. She is currently afebrile. She is tachypneic and tachycardic. Blood pressure currently stable. D-dimer 2.07. Chest x-ray continues to reveal a chronic elevated right hemidiaphragm with right basilar atelectasis. Objective - Vital Signs Vital signs: Vital Signs Temp 97.7 F 12/17/19 01:46 Pulse 106 H 12/17/19 08:35 Resp 26 H 12/17/19 08:35 BP 138/83 12/17/19 08:35 Pulse Ox 100 12/17/19 08:35 Intake & Output 12/16/19 12/17/19 12/17/19 18:59 06:59 18:59 Intake Total 480 Output Total 1500 Balance 480 -1500 Weight 43 kg Intake: Oral 480 Output: Urine 1500 Other: Voiding Method Indwelling Catheter Indwelling Catheter Indwelling Catheter # Voids 2 - Exam GENERAL EXAM: Awake, very frail 84-year-old female patient, on BiPAP with 100% FiO2, in moderate distress HEAD: Normocephalic. EYES: Normal reaction of pupils, equal size. NOSE: Clear with pink turbinates. THROAT: No erythema or exudates. NECK: No masses, no JVD. CHEST: No chest wall deformity. LUNGS: Equal air entry with crackles in the right base. CVS: S1 and S2 normal with no audible murmur, regular rhythm. ABDOMEN: No hepatosplenomegaly, normal bowel sounds, no guarding or rigidity. SPINE: Kyphoscoliosis SKIN: No rashes CENTRAL NERVOUS SYSTEM: No focal deficits, tone is normal in all 4 extremities. EXTREMITIES: Left hip dressing dry and intact. No clubbing edema or cyanosis - Labs CBC & Chem 7: 12/16/19 06:46 12/16/19 06:46 Labs: Abnormal Lab Results - Last 24 Hours (Table) 12/17/19 Range/Units 07:09 D-Dimer 2.07 H (<0.60) mg/L FEU Assessment and Plan Assessment: 1 Acute intertrochanteric fracture of the left hip with avulsion of the lesser trochanter, buckle fracture of the right superior pubic symphysis, status post fall. Status post closed reduction and intramedullary nailing. 2 Nondisplaced distal left clavicular fracture, status post fall 3 Acute hypoxemic respiratory failure secondary to suspected CoVID 19 pneumonitis 4 CoVID 19 positive 5 History of dementia 6 Protein calorie malnutrition/cachexia 7 History of osteoarthritis/osteoporosis 8 Poor overall functional performance based on the above-mentioned multiple comorbidities Plan: The patient was seen and evaluated by Dr. Wiggins The patient has been deteriorating in the past 12 hours Overall prognosis is quite poor She is a DO NOT RESUSCITATE/DO NOT INTUBATE CODE STATUS Possible hospice/comfort care consideration I, the cosigning physician, performed a history & physical examination of the patient. Lungs sounds with crackles in the right base. Maintaining good O2 saturations in the 90s on 100% FiO2 via BiPAP 06/27. I discussed the assessment and plan of care with my nurse practitioner, Itzel Olivas. I attest to the above note as dictated by her.
[2019-12-17] MEDS: MORPHINE SULFATE 4 MG/ML SYRINGE IV PRN ×2 (13:03→17:30)
--- NOTE | 2019-12-17 16:39 | P.PN ---
Subjective Progress Note Date: 12/17/19 This patient is an 84-year-old female that is status-post Left hip intertrochanteric fracture closed reduction and intramedullary nailing on 12/13/[address] Burkett. Today is postoperative day #4. Patient is examined bedside this morning. Patient went into respiratory distress last night and A-team was called. Patient received additional dose of Lasix and was placed on BiPAP. A transfer order was placed for the patient to be transferred to the ICU, although there are no beds available in the ICU. Sheila ent's code status has been updated and she is currently a no code. [facility] hospice has been consulted. Patient is examined bedside and is currently on BiPAP. There are no voiced complaints. Objective - Vital Signs Vital signs: Vital Signs Temp 97.7 F 12/17/19 01:46 Pulse 106 H 12/17/19 08:35 Resp 26 H 12/17/19 08:35 BP 138/83 12/17/19 08:35 Pulse Ox 100 12/17/19 08:35 Intake & Output 12/16/19 12/17/19 12/17/19 18:59 06:59 18:59 Intake Total 480 Output Total 1500 Balance 480 -1500 Weight 43 kg Intake: Oral 480 Output: Urine 1500 Other: Voiding Method Indwelling Catheter Indwelling Catheter Indwelling Catheter # Voids 2 - Exam On examination, the patient is currently on BiPAP. Patient does not respond to questions and commands. She is lethargic on exam. On inspection of the left hip, there is clean, dry, intact surgical dressings in place. There is no drainage or bleeding through the dressing. The left lower extremity is warm and well perfused with brisk capillary refill distally. Dorsalis pedis pulse +2. - Labs CBC & Chem 7: 12/16/19 06:46 12/16/19 06:46 Labs: Abnormal Lab Results - Last 24 Hours (Table) 12/17/19 Range/Units 07:09 D-Dimer 2.07 H (<0.60) mg/L FEU Assessment and Plan Assessment: Status-post Left hip intertrochanteric fracture closed reduction and intramedullary nailing on 12/13/19. Post-operative day #4. Chronic left distal clavicle fracture COVID + Acute hypoxemic respiratory failure Plan: - Toe-touch weightbearing on the operative leg. Keep Optifoam dressing in place for 7-10 days postoperatively. - Pain management as needed. - Medical management per internal medicine. DVT prophylaxis per internal medicine. - We will continue to follow patient and make orthopedic recommendations as needed. Patient discussed with Dr. Burkett.
[2019-12-17] MEDS: SODIUM CHLORIDE 0.9% 1,000 ML IV SCH (17:39)
[2019-12-17] MEDS ORDERED: LORazepam 2 MG/ML INJ IV PRN (21:00)
[2019-12-17] MEDS: SENNOSIDES-DOCUSATE SODIUM 1 EACH TAB PO SCH (22:17)
[2019-12-17] MEDS: MIRTAZAPINE 15 MG TAB PO SCH (22:17)
[2019-12-18] MEDS: MORPHINE SULFATE 4 MG/ML SYRINGE IV PRN ×2 (02:04→11:01)
[2019-12-18 03:31] VITALS: TEMP 98.8
[2019-12-18] MEDS: SODIUM CHLORIDE 0.9% 1,000 ML IV SCH ×2 (05:36→11:47)
[2019-12-18] MEDS: ASPIRIN 325 MG TAB PO SCH (07:10)
[2019-12-18] MEDS: ENOXAPARIN 40 MG/0.4 ML SYRINGE SQ SCH (07:10)
[2019-12-18] MEDS: DONEPEZIL 5 MG TAB PO SCH (07:10)
[2019-12-18] MEDS: FAMOTIDINE 20 MG TAB PO SCH (07:11)
[2019-12-18] MEDS: POTASSIUM CHLORIDE ER 20 MEQ TAB.ER PO SCH (07:11)
[2019-12-18 07:30] VITALS: BP 93/56; PULSE 86; RESP 16
--- NOTE | 2019-12-18 08:35 | P.PN ---
Subjective Progress Note Date: 12/17/19 Principal diagnosis: Left intertrochanteric hip fracture, left nondisplaced distal left clavicular fracture, COVID 19 positive with no pulmonary symptoms, dementia, anemia, electrolyte imbalance or leukocytosis. This is an 84-year-old female patient of with past medical history of generalized osteoarthritis, osteoporosis, anemia, chronic hypokalemia, hypothyroidism, frequent urinary tract infections, diverticulitis, dementia. Patient has been seen in the office on multiple occasions recently with general problems including weight loss. Patient refused [id number] longterm placement was being worked on between [facility] or [facility]. The patient has a sister that lives in the apartment across the [place] from her and has been assisting her. Yesterday, patient had a fall after losing her balance, fell in the bathroom and hit her face on the sink and landed on her left side. She is complaining of left hip and left shoulder pain as well as head pain. Patient denies any loss of consciousness. No nausea, vomiting, dizziness, chest pain, shortness of breath. She denies any abdominal pain. She was afebrile and vital signs were stable, WBC 24.4, hemoglobin 13.7, platelets 140, sodium 133, potassium 4.7, chloride 103, CO2 24, BUN 15, creatinine 0.76, blood sugar 108. CAT scan of the brain, cervical spine, facial bones showed no acute abnormalities. Left shoulder x-ray showed moderately advanced degenerative changes of the left shoulder. There may be an old fracture of the distal clavicle. Right hip and pelvis showed intertrochanteric fracture left hip with avulsion of the lesser trochanter. Buccal fracture of the right superior pubic symphysis. Patient was placed on a sling and admitted to [facility] floor under orthopedics. 12/12: Received call this morning from patient's nurse the patient was positive for COVID-19. Consult added for Dr. Colmenares. Orthopedics has been notified. Patient denies any new complaints. Appears to be still slightly more weak today from yesterday. She has been afebrile, heart rate 98, blood pressure 131/70, pulse ox 95% on room air. D-dimer 1.48. Sodium 133, potassium 5.2, chloride 104, CO2 19, BUN 32, creatinine 1.4, blood sugar 112. LDH 678, CK 28, C- reactive protein and a 4.1. Patient's sister will be contacted after rounds regarding update on patient condition and the Covid 19 positive test result. 12/13: Patient had nailing of the hip fracture a doing well with it so far, left clavicular fracture she had sling at this point conservative management no surgical intervention is required. Patient Covid 19 is positive but she is not symptomatic at this point she is on conservative management and supportive care no fever chills no cough no finding on x-ray. The biggest dilemma will be how to send patient from the hospital to the [facility] with Covid positive she'll need to have the test repeated and need to be negative before able to move to the prison rehab. 12/14: patient was transfer out of the ICU she is on the fourth floor still in isolation for the Covid 19, patient will be having another Covid 19 test today to see if her positive was very positive of falls positive because patient as of now still have no symptom of infection. Pain is under control mobility so decreased patient slightly but confused. Patient eventually need to go to prison re[facility] but ~Covid 19 issue is a clear she'll be in the hospital. 12/15: Patient is still slightly confused her Covid 19 new tests still pending at this point, continue PTOT and hopefully prepare for rehab as soon as clear from infectious disease and pulmonary standpoint. Objective - Vital Signs Vital signs: Vital Signs Temp 97.9 F 12/17/19 15:00 Pulse 95 12/17/19 15:00 Resp 29 H 12/17/19 15:00 BP 132/65 12/17/19 15:00 Pulse Ox 99 12/17/19 15:00 Intake & Output 12/17/19 12/17/19 12/18/19 06:59 18:59 06:59 Output Total 1500 Balance -1500 Weight 43 kg 43 kg Output: Urine 1500 Other: Voiding Method Indwelling Catheter Indwelling Catheter # Voids 2 - Exam Review of Systems Constitutional: Reports weight loss, Denies anorexia, Denies chills, Denies fatigue, Denies fever, Denies lethargy, Denies malaise, Denies poor appetite, Denies weakness Ears, nose, mouth and throat: Denies dental pain, Denies dysphagia, Denies headache, Denies mouth pain, Denies nasal congestion, Denies nasal discharge, Denies sore throat, Denies vertigo Cardiovascular: Denies chest pain, Denies dyspnea on exertion, Denies edema, Denies irregular heart beat, Denies leg edema, Denies lightheadedness, Denies shortness of breath, Denies syncope Respiratory: Denies cough, Denies cough with sputum, Denies dyspnea, Denies excessive sputum, Denies hemoptysis, Denies home oxygen, Denies respiratory infections, Denies wheezing Gastrointestinal: Denies abdominal pain, Denies diarrhea, Denies nausea, Denies vomiting Genitourinary: Denies dysuria, Denies hematuria, Denies urgency, Denies urinary frequency Menstruation: Reports postmenopausal Musculoskeletal: Reports gait dysfunction, Reports muscle weakness, Denies frequ ent falls, Denies myalgias Integumentary: Denies pruritus, Denies rash, Denies wounds Neurological: Reports weakness, Denies change in mentation, Denies change in speech, Denies numbness, Denies seizures Psychiatric: Denies anxiety, Denies depression Endocrine: Denies fatigue, Denies weight change Physical examination Gen: This is an 84-year-old female. Patient is very cachectic appearing. Patient is resting in bed and appears to be comfortable. HEENT: Head is atraumatic, normocephalic. Pupils equal, round. Sclerae is anicteric. NECK: Supple. No JVD. No lymphadenopathy. No thyromegaly. LUNGS: Clear to auscultation. No wheezes or rhonchi. No intercostal retractions. HEART: Regular rate and rhythm. No murmur. ABDOMEN: Soft. Bowel sounds are present. No masses. No tenderness. EXTREMITIES: No pedal edema. No calf tenderness. Left lower extremity is externally rotated and shortened. NEUROLOGICAL: Patient is awake, alert and oriented x3. Cranial nerves 2 through 12 are grossly intact. - Labs CBC & Chem 7: 12/16/19 06:46 12/16/19 06:46 Labs: Abnormal Lab Results - Last 24 Hours (Table) 12/17/19 Range/Units 07:09 D-Dimer 2.07 H (<0.60) mg/L FEU Assessment and Plan Assessment: 1 Acute intertrochanteric fracture of the left hip with avulsion of the lesser trochanter, buckle fracture of the right superior pubic symphysis, status post fall, status post surgery and she is postoperative day #2. Doing well still in isolation. 2 Nondisplaced distal left clavicular fracture, status post fall, on sling no surgical intervention required. 3 CoVID 19 positive, patient has no active pulmonary symptoms and her chest x- ray is reassuring. We will order another Covid 19 test today if it's negative one more test will be ordered on Monday morning before going to rehab. 4 History of dementia: Was started back on Rivastigmin 0.5 g twice a day. 5 acute leukocytosis: Most likely reaction to hip fracture and the Covid 19. Still watching for any secondary infection at this point including UTI. 6 weight loss and severe protein calorie malnutrition: Continue Remeron and continue protein supplement. 7 hypokalemia: On supplement therapy. GI prophylaxis: On Pepcid. Discharge planning: Still pending Covid 19 test at this point patient would not be able to move to rehab till at least it's clear and negative.
--- NOTE | 2019-12-18 15:17 | PN ---
PROGRESS NOTE PULMONARY/CRITICAL CARE PROGRESS NOTE: DATE OF SERVICE: 12/18/2019 This is an 84-year-old female who has apparently been made hospice patient. She came in with an acute intertrochanteric fracture of the left hip. She apparently fell. The patient was admitted back on December 12. The patient also had a nondisplaced distal left clavicular fracture. She was found to be COVID-19 positive. She has a history of dementia and protein calorie malnutrition, cachexia, osteoarthritis and osteoporosis, and general medical debility. The patient has made very little progress here in the hospital. The patient was placed on oxygen and all her medications were discontinued and she was made a hospice patient in place primarily on medications for palliation and comfort. The patient appears to be relatively comfortable at this time. Current vital signs include a temperature 97.3, heart rate of 100, respiratory rate of 16, blood pressure 131/70, and saturations are 90%. Appears in no acute distress. HEENT: Examination is grossly unremarkable. Oxygen by mask noted. NECK: Supple. Full range of motion. CARDIOVASCULAR: Examination reveals regular rhythm and rate. Heart rate about 100. HEART: Sounds are distant. LUNGS: Reveal diffuse coarse rhonchi. No wheezes or crackles. ABDOMEN: Soft. No bowel sounds. EXTREMITIES: Intact. Minimal edema. SKIN: Without rash. NEUROLOGIC: Examination is difficult to assess. She is very somnolent and lethargic. ASSESSMENT: 1. Acute intertrochanteric fracture of the left hip with avulsion of the lesser trochanter, buckle fracture of the right superior pubic symphysis, status post fall. 2. Status post closed reduction and intramedullary nailing. 3. Nondisplaced distal left clavicular fracture, status post fall. 4. Acute hypoxemic respiratory failure, secondary to suspected COVID-19 pneumonitis. 5. COVID-19 positive by nasopharyngeal swab. 6. History of dementia. 7. Protein calorie malnutrition. 8. Anorexia/cachexia syndrome. 9. History of osteoarthritis. 10.History of osteoporosis. 11.General medical debility and poor functional status. PLAN: The patient was a DO NOT RESUSCITATE, DO NOT INTUBATE patient. She has been transitioned over to either palliative care or hospice care. Additional recommendations and suggestions are forthcoming. Prognosis is poor. Her is likely eminent. MMODL / IJN: [id number] /
== END 2019-12-18 13:35 | disposition hospice, inpatient (51) | DRG 956 ==
LOC: SUPCPDRO 06:19 → EC 06:19 → 4SSUR 07:32 → 2SICU 12-13 17:00 → 4SSUR 12-14 19:16
PROVIDERS: ADMIT Internal Medicine Geriatric Medicine; ATTEND Internal Medicine Geriatric Medicine
PROC: 0QS736Z Reposition Left Upper Femur with Intramedullary Internal Fixation Device, Percutaneous Approach (ICD-10-PCS; principal; 2019-12-13 15:40)
PROC: 5A09457 Assistance with Respiratory Ventilation, 24-96 Consecutive Hours, Continuous Positive Airway Pressure (ICD-10-PCS; 2019-12-17)
DX: S72.142A Displaced intertrochanteric fracture of left femur, initial encounter for closed fracture (principal); S32.511A Fracture of superior rim of right pubis, initial encounter for closed fracture; U07.1 COVID-19; E43 Unspecified severe protein-calorie malnutrition; J96.01 Acute respiratory failure with hypoxia; J12.89 Other viral pneumonia; R64 Cachexia; Z68.1 Body mass index [BMI] 19.9 or less, adult; J98.11 Atelectasis; G30.9 Alzheimer's disease, unspecified; F02.80 Dementia in other diseases classified elsewhere, unspecified severity, without behavioral disturbance, psychotic disturbance, mood disturbance, and anxiety; R54 Age-related physical debility; Z66 Do not resuscitate; Z51.5 Encounter for palliative care; D72.829 Elevated white blood cell count, unspecified; S00.83XA Contusion of other part of head, initial encounter; S40.012A Contusion of left shoulder, initial encounter; E03.9 Hypothyroidism, unspecified; E86.0 Dehydration; G89.29 Other chronic pain; S42.032S Displaced fracture of lateral end of left clavicle, sequela; D64.9 Anemia, unspecified; M81.0 Age-related osteoporosis without current pathological fracture; M19.012 Primary osteoarthritis, left shoulder; M48.54XD Collapsed vertebra, not elsewhere classified, thoracic region, subsequent encounter for fracture with routine healing; M41.9 Scoliosis, unspecified; Z79.899 Other long term (current) drug therapy; Z87.440 Personal history of urinary (tract) infections; Z87.19 Personal history of other diseases of the digestive system; W01.0XXA Fall on same level from slipping, tripping and stumbling without subsequent striking against object, initial encounter; Y92.002 Bathroom of unspecified non-institutional (private) residence as the place of occurrence of the external cause; Z80.9 Family history of malignant neoplasm, unspecified; Z82.49 Family history of ischemic heart disease and other diseases of the circulatory system
CPT/HCPCS: 36415; 70450; 70486; 71045; 72125; 73501; 73502; 80048; 80053; 81003; 82550; 82728; 83615; 84484; 85025; 85379; 85610; 85730; 86140; 87635; 88304; 88311; 93005; 94660; 94760; 94762; 96374; 99285

== ENCOUNTER 2019-12-18 13:10 | Inpatient (IN) | payer MEDICAID ==
[2019-12-18] MEDS ORDERED: ACETAMINOPHEN SUPPOSITORY 650 MG SUPP RECTAL PRN (13:12)
[2019-12-18] MEDS ORDERED: ONDANSETRON 4 MG/2 ML VIAL IVP PRN (13:12)
[2019-12-18] MEDS ORDERED: LORazepam 2 MG/ML INJ IV PRN (13:12)
[2019-12-18] MEDS ORDERED: ATROPINE OPHTH SOLN 1% 5ML BTL SUBLINGUAL PRN (13:12)
[2019-12-18] MEDS ORDERED: SCOPOLAMINE 1.5MG/72HR PATCH TRANSDERM PRN (13:12)
[2019-12-18] MEDS: MORPHINE SULFATE (100 MG/2 ML) 100 MG in SODIUM CHLORIDE 0.9% 100 ML IV SCH (14:02)
--- NOTE | 2019-12-18 14:59 | P.PN ---
Progress Note - Text Progress Note Date: 12/18/19 Orthopedics: History of present illness: Patient is a very pleasant 84-year-old female who is seen lying in bed on high flow BiPAP machine. Patient is unable to answer questions appropriately the bedside. Patient was placed on BiPAP machine after decreasing oxygen saturations and respiratory distress. Nursing states her D saturation may be due to aspiration. Her most recent Covid 19 testing has come back negative. Patient is status post left intramedullary nail fixation for left intertrochanteric hip fracture postoperative day #5. She continues be seeing exam by multiple medical providers including medicine and pulmonology. Nursing also states hospice has been consulted for the patient and plan of care will be discussed with the family. Patient is unable to take oral medications currently due to BiPAP use. Patient has been transferred to no code status. Physical Exam Intramedullary Rodding for Intertrochanteric Fracture: Status post surgical day number 5 Patient is examined lying in bed Patient is currently on BiPAP and unable to answer questions Vital signs stable Lower extremity cuffs in place bilaterally Dressing of the right hip is clean, dry, and intact; no erythema, purulence, or signs of infection No pain with palpation over the surgical sites No evidence of significant bruising, erythema, or swelling over the left shoulder Contusions over the left methodist and cheek Pertinent studies: CT of the left shoulder taken on 12/12/2019: Nondisplaced distal left clavicle fracture which appears chronic in nature; severe glenohumeral osteoarthritis; no evidence of fracture or dislocation of the humerus; no evidence of soft tissue masses appreciated; remote left-sided rib fractures X-rays of the left hip and pelvis taken on 12/12/2019: Left intertrochanteric hip fracture with avulsion of the lesser trochanter; buckle fracture of the right superior pubic symphysis X-rays the left shoulder taken on 12/12/2019: Moderately advanced degenerative changes of the left shoulder; may be evidence of an old fracture of the distal clavicle and possible proximal humerus fracture X-ray left femur taken on 12/12/2019: Left intertrochanteric hip fracture with avulsion of the lesser trochanter; some angulation of the fracture fragment; the joint space appears preserved CT of the head and cervical spine taken on 12/12/2019: Negative computed tomography scan of the cervical spine; no evidence of cervical fracture; cerebral atrophy, chronic small vessel ischemia; no acute intracranial abnormality; multiple upper thoracic compression fracture deformities with thoracic kyphotic deformity which these fractures are probably chronic CT of the face taken on 12/12/2019: Exam limited surgery by motion; no fracture seen Assessment: Status post left hip intramedullary nail fixation for intertrochanteric hip fracture; post operative day #5 Acute hypoxic respiratory failure Chronic left distal clavicle fracture Osteoarthritis left shoulder Right superior pubic symphysis buckle fracture Contusion over the left cheek and left methodist Plan: 1. Patient has been been discharged from regular hospital admit status and has been transferred to hospice care. Patient may proceed forward with plan of care as controlled by hospice including medications. Patient was previously on aspirin 325 mg twice a day for anticoagulation postoperatively. Patient will remain toe-touch weightbearing on the left lower extremity. Patient should keep dressing clean, dry, and intact over the left hip over the next 10 days postoperatively. Patient may be bathed with dressing intact. Patient may use a sling for the left upper extremity for comfort and support as needed. Patient will continue with Roland catheter as controlled by medicine. At this time, we will plan to follow the patient remotely from an orthopedic standpoint. We may be contacted at anytime for further treatment and evaluation in regards to her left hip, left shoulder, or pubic fracture. She will continue be seen and examined by other medical providers.
[2019-12-20] MEDS: MORPHINE SULFATE (100 MG/2 ML) 100 MG in SODIUM CHLORIDE 0.9% 100 ML IV SCH ×3 (00:34→23:16)
[2019-12-20 08:36] VITALS: BP 88/63; PULSE 102; TEMP 98.5
[2019-12-21 06:56] VITALS: RESP 6
== END 2019-12-21 09:25 | disposition expired | DRG 951 ==
LOC: 4SSUR 13:35
PROVIDERS: ADMIT Internal Medicine Geriatric Medicine; ATTEND Internal Medicine Geriatric Medicine
DX: Z51.5 Encounter for palliative care (principal); S72.142A Displaced intertrochanteric fracture of left femur, initial encounter for closed fracture; U07.1 COVID-19; J96.01 Acute respiratory failure with hypoxia; E43 Unspecified severe protein-calorie malnutrition; S02.82XA Fracture of other specified skull and facial bones, left side, initial encounter for closed fracture; Z68.1 Body mass index [BMI] 19.9 or less, adult; M19.012 Primary osteoarthritis, left shoulder; S00.83XA Contusion of other part of head, initial encounter; S42.035A Nondisplaced fracture of lateral end of left clavicle, initial encounter for closed fracture; M81.0 Age-related osteoporosis without current pathological fracture; E87.6 Hypokalemia; E03.9 Hypothyroidism, unspecified; G30.9 Alzheimer's disease, unspecified; F02.80 Dementia in other diseases classified elsewhere, unspecified severity, without behavioral disturbance, psychotic disturbance, mood disturbance, and anxiety; W18.30XA Fall on same level, unspecified, initial encounter; Y92.002 Bathroom of unspecified non-institutional (private) residence as the place of occurrence of the external cause; Z87.440 Personal history of urinary (tract) infections; D72.829 Elevated white blood cell count, unspecified; R63.4 Abnormal weight loss